=== PATIENT | male | born 1980 | race Caucasian/White ===

== ENCOUNTER 2017-06-08 06:32 | Inpatient (IN) | payer MEDICAID, OTHER ==
[2017-06-08] MEDS: ONDANSETRON 4 MG INJ IV (07:43)
[2017-06-08] MEDS: HYDROmorphONE 1 MG/ML SYG IV ×2 (07:43→10:22)
[2017-06-08] MEDS: NITROGLYCERIN (SL) 0.4 MG TAB SL (07:43)
[2017-06-08 07:45] LABS: ADD MAN DIFF? NO
[2017-06-08 07:47] LABS: WHITE BLOOD COUNT 11.1 10^3/ul (4.8-10.8)
[2017-06-08 07:47] LABS: ABNORMAL IP MESSAGE 1; BASOPHIL # 0.1 10^3/ul (0.0-0.1); BASOPHILS % 0.5 % (0.0-2.0); EOSINOPHILS # 0.3 10^3/ul (0.0-0.5); EOSINOPHILS % 2.5 % (0.0-7.0); LYMPHOCYTES # 0.6 10^3/ul (0.8-2.9); LYMPHOCYTES % 5.3 % (15.0-51.0); MEAN CORPUSCULAR HEMOGLOBIN 29.2 pg (29.0-33.0); MEAN CORPUSCULAR HGB CONC 32.4 g/dl (32.0-37.0); MEAN PLATELET VOLUME 11.2 fl (7.4-10.4); MONOCYTE # 0.7 10^3/ul (0.3-0.9); MONOCYTES % 5.9 % (0.0-11.0); NEUTROPHIL # 9.5 10^3/ul (1.6-7.5); NEUTROPHILS % 85.4 % (39.0-77.0); PLATELET COUNT 197 10^3/UL (140-415); POSITIVE DIFF @See below; RED BLOOD COUNT 4.11 10^6/ul (4.70-6.10); RED CELL DISTRIBUTION WIDTH 14.6 % (11.5-14.5)
[2017-06-08 08:05] LABS: ANION GAP 25 (8-16); BLOOD UREA NITROGEN 72 mg/dl (7-20); CALCIUM 8.9 mg/dl (8.4-10.2); CARBON DIOXIDE 26 mmol/L (21-31); CHLORIDE 93 mmol/L (97-110); GLUCOSE 99 mg/dl (70-220); SODIUM 139 mmol/L (135-144)
[2017-06-08 08:09] LABS: INR 0.99; PROTIME 13.2 Sec (11.9-14.9)
[2017-06-08 08:10] LABS: PARTIAL THROMBOPLASTIN TIME 31.5 Sec (25.0-35.0)
[2017-06-08 08:15] LABS: CREATININE 14.74 mg/dl (0.61-1.24)
[2017-06-08 08:26] LABS: TROPONIN-I 0.221 ng/ml (0.00-0.12)
[2017-06-08] MEDS: NITROGLYCERIN 50 MG/D5W (PMX) 250 ML IV ×2 (08:29→21:52)
[2017-06-08] MEDS: ASPIRIN 81 MG TAB PO (08:31)
[2017-06-08] MEDS ORDERED: DOCUSATE SODIUM 100 MG CAP PO (12:30)
[2017-06-08] MEDS ORDERED: morphine 2 MG INJ IV (12:30)
[2017-06-08] MEDS ORDERED: HYDROCODONE/APAP (5/325) TAB PO (12:30)
[2017-06-08] MEDS ORDERED: NACL 0.9% 3 ML SYG IV (12:30)
[2017-06-08] MEDS ORDERED: ONDANSETRON 4 MG INJ IV (12:30)
[2017-06-08] MEDS ORDERED: ACETAMINOPHEN 325 MG TAB PO (12:30)
[2017-06-08 12:50] LABS: ALANINE AMINOTRANSFERASE 18 IU/L (13-69); ALBUMIN 4.4 g/dl (3.3-4.9); ALKALINE PHOSPHATASE 103 IU/L (42-121); ASPARTATE AMINO TRANSFERASE 18 IU/L (15-46); TOTAL PROTEIN 7.2 g/dl (6.1-8.1)
[2017-06-08 15:00] LABS: CREATINE KINASE 168 IU/L (23-200)
[2017-06-08 15:11] LABS: CK INDEX 1.4
[2017-06-08 15:26] LABS: CK-MB 2.31 ng/ml (0.0-2.4); TROPONIN-I 0.149 ng/ml (0.00-0.12)
[2017-06-08 15:57] LABS: HEPATITIS B SURFACE ANTIGEN NEGATIVE (NEGATIVE)
[2017-06-08 16:15] LABS: HEPATITIS B SURFACE ANTIBODY POSITIVE (NEGATIVE)
[2017-06-08] MEDS: HEPARIN 5,000 UNIT/0.5 ML VIAL SC ×2 (17:19→21:57)
[2017-06-08] MEDS: CEFTRIAXONE 1 GM/50 ML (PMX) 50 ML IVPB (17:21)
[2017-06-08] MEDS: CINACALCET 30 MG TAB PO (17:22)
[2017-06-08] MEDS: BENAZEPRIL 20 MG TAB PO ×2 (17:23→20:58)
[2017-06-08] MEDS: SEVELAMER CARBONATE 0.8 GM PKT PO (19:01)
[2017-06-08] MEDS ORDERED: NITROGLYCERIN 50 MG/D5W (PMX) 250 ML (19:12)
[2017-06-08 19:32] LABS: CREATINE KINASE 137 IU/L (23-200)
[2017-06-08 19:45] LABS: CK INDEX 1.5
[2017-06-08 19:58] LABS: CK-MB 2.08 ng/ml (0.0-2.4); TROPONIN-I 0.139 ng/ml (0.00-0.12)
[2017-06-08] MEDS ORDERED: SODIUM CHLORIDE 0.9% 1L BAG IV (20:00)
[2017-06-08] MEDS: METOPROLOL 50 MG TAB PO (20:58)
[2017-06-08] MEDS: NIFEdipine (XL) 30 MG TAB PO (23:49)
[2017-06-09 01:14] LABS: CREATINE KINASE 188 IU/L (23-200)
[2017-06-09 01:26] LABS: CK INDEX 1.2
[2017-06-09 01:31] LABS: CK-MB 2.18 ng/ml (0.0-2.4); TROPONIN-I 0.166 ng/ml (0.00-0.12)
[2017-06-09] MEDS: PANTOPRAZOLE 40 MG INJ IV (05:09)
[2017-06-09] MEDS: HEPARIN 5,000 UNIT/0.5 ML VIAL SC ×3 (05:11→22:38)
[2017-06-09 06:08] LABS: ADD MAN DIFF? NO
[2017-06-09 06:36] LABS: ALANINE AMINOTRANSFERASE 22 IU/L (13-69); ALBUMIN 3.7 g/dl (3.3-4.9); ALBUMIN/GLOBULIN RATIO 1.48; ALKALINE PHOSPHATASE 73 IU/L (42-121); ANION GAP 20 (8-16); ASPARTATE AMINO TRANSFERASE 16 IU/L (15-46); BLOOD UREA NITROGEN 53 mg/dl (7-20); CARBON DIOXIDE 30 mmol/L (21-31); CHLORIDE 94 mmol/L (97-110); CHOL/HDL RATIO 3.8 RATIO; CHOLESTEROL 149 mg/dl (100-200); CREATININE 12.29 mg/dl (0.61-1.24); GLUCOSE 91 mg/dl (70-220); HDL CHOLESTEROL 39 mg/dl (28-63); LDL CHOLESTEROL,CALCULATED 92 mg/dl; POTASSIUM 4.9 mmol/L (3.5-5.1); SODIUM 139 mmol/L (135-144); TOTAL PROTEIN 6.2 g/dl (6.1-8.1); TRIGLYCERIDES 89 mg/dl (0-149)
[2017-06-09 06:51] LABS: WHITE BLOOD COUNT 9.1 10^3/ul (4.8-10.8)
[2017-06-09 06:51] LABS: BASOPHIL # 0.1 10^3/ul (0.0-0.1); BASOPHILS % 0.6 % (0.0-2.0); EOSINOPHILS # 0.3 10^3/ul (0.0-0.5); EOSINOPHILS % 3.1 % (0.0-7.0); HEMATOCRIT 31.3 % (42.0-52.0); LYMPHOCYTES # 0.9 10^3/ul (0.8-2.9); LYMPHOCYTES % 9.6 % (15.0-51.0); MEAN CORPUSCULAR HGB CONC 31.9 g/dl (32.0-37.0); MEAN CORPUSCULAR VOLUME 90.7 fl (82.0-101.0); MEAN PLATELET VOLUME 12.1 fl (7.4-10.4); MONOCYTE # 0.9 10^3/ul (0.3-0.9); MONOCYTES % 10.2 % (0.0-11.0); NEUTROPHIL # 6.9 10^3/ul (1.6-7.5); NEUTROPHILS % 76.2 % (39.0-77.0); PLATELET COUNT 179 10^3/UL (140-415); RED BLOOD COUNT 3.45 10^6/ul (4.70-6.10); RED CELL DISTRIBUTION WIDTH 14.8 % (11.5-14.5)
[2017-06-09 07:35] LABS: CALCIUM 8.1 mg/dl (8.4-10.2)
[2017-06-09] MEDS: METOPROLOL 50 MG TAB PO ×2 (09:00→20:54)
[2017-06-09] MEDS ORDERED: NIFEdipine (XL) 90 MG TAB PO (09:00)
[2017-06-09] MEDS: ISOSORBIDE DINITRATE 20 MG TAB PO ×3 (09:00→20:51)
[2017-06-09] MEDS: BENAZEPRIL 20 MG TAB PO ×2 (09:00→20:52)
[2017-06-09] MEDS: CINACALCET 30 MG TAB PO (09:05)
[2017-06-09] MEDS: SEVELAMER CARBONATE 0.8 GM PKT PO ×3 (09:05→18:14)
[2017-06-09] MEDS: NIFEdipine (XL) 60 MG TAB PO (14:44)
[2017-06-09] MEDS: CEFTRIAXONE 1 GM/50 ML (PMX) 50 ML IVPB (14:44)
[2017-06-09] MEDS ORDERED: NIFEdipine (XL) 30 MG TAB PO (21:00)
[2017-06-09] MEDS: NIFEdipine (XL) 30 MG TAB PO (22:35)
[2017-06-10] MEDS: PANTOPRAZOLE 40 MG INJ IV (05:52)
[2017-06-10] MEDS: HEPARIN 5,000 UNIT/0.5 ML VIAL SC ×3 (05:54→21:21)
[2017-06-10] MEDS: SEVELAMER CARBONATE 0.8 GM PKT PO ×3 (08:00→18:32)
[2017-06-10] MEDS: CINACALCET 30 MG TAB PO (09:16)
[2017-06-10] MEDS: ASPIRIN 81 MG TAB PO (09:16)
[2017-06-10] MEDS: NIFEdipine (XL) 60 MG TAB PO (09:16)
[2017-06-10] MEDS: BENAZEPRIL 20 MG TAB PO ×2 (09:17→21:12)
[2017-06-10] MEDS: ISOSORBIDE DINITRATE 20 MG TAB PO ×3 (09:17→21:11)
[2017-06-10] MEDS: METOPROLOL 50 MG TAB PO ×2 (09:17→21:11)
[2017-06-10] MEDS: REGADENOSON 0.4 MG/5 ML SYG (11:00)
[2017-06-10] MEDS: CEFTRIAXONE 1 GM/50 ML (PMX) 50 ML IVPB (15:32)
[2017-06-10] MEDS: NIFEdipine (XL) 30 MG TAB PO (22:15)
[2017-06-11] MEDS: PANTOPRAZOLE 40 MG INJ IV (05:49)
[2017-06-11] MEDS: HEPARIN 5,000 UNIT/0.5 ML VIAL SC ×2 (05:50→13:47)
[2017-06-11] MEDS: SEVELAMER CARBONATE 0.8 GM PKT PO ×3 (08:00→18:05)
[2017-06-11] MEDS: NIFEdipine (XL) 60 MG TAB PO (09:00)
[2017-06-11] MEDS: ISOSORBIDE DINITRATE 20 MG TAB PO ×2 (09:00→13:27)
[2017-06-11] MEDS: METOPROLOL 50 MG TAB PO ×2 (09:00→13:26)
[2017-06-11] MEDS: ASPIRIN 81 MG TAB PO (09:00)
[2017-06-11] MEDS: BENAZEPRIL 20 MG TAB PO (09:00)
[2017-06-11] MEDS: CINACALCET 30 MG TAB PO (09:00)
[2017-06-11] MEDS: CEFTRIAXONE 1 GM/50 ML (PMX) 50 ML IVPB (13:27)
== END 2017-06-11 18:18 | disposition home or self-care (01) | DRG 291 ==
LOC: E/R 06:32 → MS4 06-09 18:46 → ICU 09:28
PROC: 5A1D70Z Performance of Urinary Filtration, Intermittent, Less than 6 Hours Per Day (ICD-10-PCS; principal; 2017-06-08)
DX: I13.2 Hypertensive heart and chronic kidney disease with heart failure and with stage 5 chronic kidney disease, or end stage renal disease (principal); N18.6 End stage renal disease; J18.9 Pneumonia, unspecified organism; J81.1 Chronic pulmonary edema; I50.23 Acute on chronic systolic (congestive) heart failure; I16.1 Hypertensive emergency; I50.84 End stage heart failure; Z99.2 Dependence on renal dialysis; Z72.0 Tobacco use; Z91.11 Patient's noncompliance with dietary regimen
CPT/HCPCS: 36415; 71045; 76700; 78452; 80048; 80053; 80061; 80076; 82550; 82553; 84484; 85025; 85610; 85730; 86706; 87081; 87340; 87400; 90935; 93005; 93017; 93306; 96365; 96372; 96375; 96376; 99291-25

== ENCOUNTER 2017-11-22 12:25 | Inpatient (IN) | payer MEDICAID ==
[2017-11-22 15:16] LABS: WHITE BLOOD COUNT 8.5 10^3/ul (4.8-10.8)
[2017-11-22 15:16] LABS: ABNORMAL IP MESSAGE 1; HEMATOCRIT 35.3 % (42.0-52.0); HEMOGLOBIN 10.9 g/dl (14.0-18.0); MEAN CORPUSCULAR HEMOGLOBIN 27.9 pg (29.0-33.0); MEAN CORPUSCULAR HGB CONC 30.9 g/dl (32.0-37.0); MEAN CORPUSCULAR VOLUME 90.3 fl (82.0-101.0); MEAN PLATELET VOLUME 11.1 fl (7.4-10.4); PLATELET COUNT 180 10^3/UL (140-415); POSITIVE DIFF @See below; RED BLOOD COUNT 3.91 10^6/ul (4.70-6.10); RED CELL DISTRIBUTION WIDTH 18.4 % (11.5-14.5)
[2017-11-22 15:23] LABS: ADD MAN DIFF? YES
[2017-11-22] MEDS: ONDANSETRON 4 MG INJ IV ×3 (15:29→22:24)
[2017-11-22] MEDS: HYDROmorphONE 1 MG/ML SYG IV ×2 (15:30→22:01)
[2017-11-22 15:37] LABS: ALANINE AMINOTRANSFERASE 15 IU/L (13-69); ALBUMIN 4.7 g/dl (3.3-4.9); ALBUMIN/GLOBULIN RATIO 1.46; ALKALINE PHOSPHATASE 85 IU/L (42-121); ANION GAP 23 (8-16); ASPARTATE AMINO TRANSFERASE 32 IU/L (15-46); BILIRUBIN,INDIRECT 0.2 mg/dl (0-1.1); BILIRUBIN,TOTAL 0.2 mg/dl (0.2-1.3); BLOOD UREA NITROGEN 56 mg/dl (7-20); CALCIUM 10.2 mg/dl (8.4-10.2); CARBON DIOXIDE 21 mmol/L (21-31); CHLORIDE 101 mmol/L (97-110); CREATININE 12.72 mg/dl (0.61-1.24); GLUCOSE 108 mg/dl (70-220); LIPASE 1058 U/L (23-300); POTASSIUM 4.8 mmol/L (3.5-5.1); SODIUM 140 mmol/L (135-144); TOTAL PROTEIN 7.9 g/dl (6.1-8.1)
[2017-11-22 16:02] LABS: ANISOCYTOSIS 1+ (0-0); BURR CELLS 1+ (0-0); EOSINOPHILS % (M) 1 % (0-7); MICROCYTOSIS 1+ (0-0); MONOCYTES % (M) 1 % (0-11); MYELOCYTES % (M) 1 % (0-0); PLATELET ESTIMATE NORMAL; POIKILOCYTOSIS 1+ (0-0); SEGMENTED NEUTROPHILS (M) % 97 % (39-77)
[2017-11-22] MEDS: LABETALOL HCL 20MG INJ IV (16:30)
[2017-11-22] MEDS ORDERED: ACETAMINOPHEN 325 MG TAB PO (17:30)
[2017-11-22] MEDS: hydrALAzine 20 MG INJ IV ×2 (17:44→18:46)
[2017-11-22] MEDS: HYDROmorphONE 2 MG/ML SYG IV (19:39)
[2017-11-22] MEDS ORDERED: ONDANSETRON 4 MG INJ IV (20:30)
[2017-11-22] MEDS ORDERED: MAGNESIUM HYDROXIDE 30ML CUP PO (20:30)
[2017-11-22] MEDS ORDERED: NACL 0.9% 3 ML SYG IV (20:30)
[2017-11-22] MEDS: SOD CHLORIDE 0.45% 1,000 ML IV (21:53)
[2017-11-22] MEDS: BENAZEPRIL 20 MG TAB PO (21:54)
[2017-11-22] MEDS: METOPROLOL 50 MG TAB PO (21:54)
[2017-11-22] MEDS: NIFEdipine (XL) 90 MG TAB PO (21:54)
[2017-11-22] MEDS: METOCLOPRAMIDE 10 MG INJ IV (22:01)
[2017-11-22] MEDS: DIPHENHYDRAMINE 50 MG INJ IV (22:24)
[2017-11-22] MEDS: LORAZEPAM 2 MG INJ IV (22:24)
[2017-11-23] MEDS: PANTOPRAZOLE 40 MG INJ IV (05:40)
[2017-11-23 06:02] LABS: ADD MAN DIFF? NO
[2017-11-23 06:12] LABS: ABNORMAL IP MESSAGE 1; BASOPHILS % 0.2 % (0.0-2.0); HEMATOCRIT 33.8 % (42.0-52.0); HEMOGLOBIN 10.5 g/dl (14.0-18.0); LYMPHOCYTES # 0.3 10^3/ul (0.8-2.9); LYMPHOCYTES % 2.7 % (15.0-51.0); MEAN CORPUSCULAR HEMOGLOBIN 27.3 pg (29.0-33.0); MEAN CORPUSCULAR HGB CONC 31.1 g/dl (32.0-37.0); MEAN PLATELET VOLUME 11.8 fl (7.4-10.4); MONOCYTE # 1.1 10^3/ul (0.3-0.9); MONOCYTES % 9.2 % (0.0-11.0); NEUTROPHIL # 10.7 10^3/ul (1.6-7.5); NEUTROPHILS % 87.3 % (39.0-77.0); PLATELET COUNT 176 10^3/UL (140-415); POSITIVE DIFF @See below; RED BLOOD COUNT 3.84 10^6/ul (4.70-6.10); RED CELL DISTRIBUTION WIDTH 18.4 % (11.5-14.5)
[2017-11-23 06:12] LABS: WHITE BLOOD COUNT 12.2 10^3/ul (4.8-10.8)
[2017-11-23 06:38] LABS: ALANINE AMINOTRANSFERASE 20 IU/L (13-69); ALBUMIN 4.6 g/dl (3.3-4.9); ALBUMIN/GLOBULIN RATIO 1.64; ALKALINE PHOSPHATASE 73 IU/L (42-121); ANION GAP 23 (8-16); ASPARTATE AMINO TRANSFERASE 22 IU/L (15-46); BILIRUBIN,INDIRECT 0.2 mg/dl (0-1.1); BILIRUBIN,TOTAL 0.2 mg/dl (0.2-1.3); BLOOD UREA NITROGEN 67 mg/dl (7-20); CARBON DIOXIDE 21 mmol/L (21-31); CHLORIDE 102 mmol/L (97-110); GLUCOSE 115 mg/dl (70-220); MAGNESIUM 2.7 mg/dl (1.7-2.5); PHOSPHORUS 9.3 mg/dl (2.5-4.9); POTASSIUM 5.1 mmol/L (3.5-5.1); SODIUM 141 mmol/L (135-144); TOTAL PROTEIN 7.4 g/dl (6.1-8.1)
[2017-11-23 06:47] LABS: CREATININE 13.59 mg/dl (0.61-1.24)
[2017-11-23 07:10] LABS: HEMOGLOBIN A1C 4.8 % (0-5.9)
[2017-11-23] MEDS: SEVELAMER CARBONATE 800 MG TABLET PO ×4 (07:43→18:00)
[2017-11-23] MEDS: SOD CHLORIDE 0.45% 1,000 ML IV (08:07)
[2017-11-23] MEDS: BENAZEPRIL 20 MG TAB PO ×2 (08:50→23:38)
[2017-11-23] MEDS: METOPROLOL 50 MG TAB PO ×2 (08:53→23:37)
[2017-11-23] MEDS: CINACALCET 30 MG TAB PO (08:54)
[2017-11-23] MEDS: ACETAMINOPHEN 325 MG TAB PO ×2 (09:16→20:31)
[2017-11-23] MEDS: NIFEdipine (XL) 90 MG TAB PO (09:16)
[2017-11-23] MEDS ORDERED: SODIUM CHLORIDE 0.9% 1L BAG IV (11:00)
[2017-11-23] MEDS: CEFTRIAXONE 1 GM/50 ML (PMX) 50 ML IVPB (13:08)
[2017-11-23 14:17] LABS: HEPATITIS B SURFACE ANTIGEN NEGATIVE (NEGATIVE)
[2017-11-23] MEDS: HEPARIN 1000 UNITS/ML 10 ML INJ CATHETER (22:45)
[2017-11-23] MEDS: IBUPROFEN 600 MG TAB PO (23:37)
[2017-11-24 00:37] LABS: LACTIC ACID 0.9 mmol/L (0.5-2.0)
[2017-11-24] MEDS: SOD CHLORIDE 0.45% 1,000 ML IV ×3 (00:50→20:56)
[2017-11-24 05:42] LABS: ADD MAN DIFF? NO
[2017-11-24 06:04] LABS: WHITE BLOOD COUNT 8.9 10^3/ul (4.8-10.8)
[2017-11-24 06:04] LABS: ABNORMAL IP MESSAGE 1; BASOPHILS % 0.1 % (0.0-2.0); HEMATOCRIT 33.2 % (42.0-52.0); HEMOGLOBIN 10.5 g/dl (14.0-18.0); LYMPHOCYTES # 0.4 10^3/ul (0.8-2.9); LYMPHOCYTES % 4.1 % (15.0-51.0); MEAN CORPUSCULAR HEMOGLOBIN 28.2 pg (29.0-33.0); MEAN CORPUSCULAR HGB CONC 31.6 g/dl (32.0-37.0); MEAN PLATELET VOLUME 12.4 fl (7.4-10.4); MONOCYTE # 0.5 10^3/ul (0.3-0.9); MONOCYTES % 5.1 % (0.0-11.0); NEUTROPHIL # 8.1 10^3/ul (1.6-7.5); NEUTROPHILS % 90.3 % (39.0-77.0); POSITIVE DIFF @See below; RED BLOOD COUNT 3.73 10^6/ul (4.70-6.10); RED CELL DISTRIBUTION WIDTH 18.1 % (11.5-14.5)
[2017-11-24 06:06] LABS: PLATELET COUNT 136 10^3/UL (140-415)
[2017-11-24] MEDS: PANTOPRAZOLE 40 MG INJ IV (06:08)
[2017-11-24 06:18] LABS: PHOSPHORUS 8.3 mg/dl (2.5-4.9)
[2017-11-24 06:18] LABS: MAGNESIUM 2.2 mg/dl (1.7-2.5)
[2017-11-24 06:39] LABS: ALANINE AMINOTRANSFERASE 14 IU/L (13-69); ALBUMIN 3.4 g/dl (3.3-4.9); ALBUMIN/GLOBULIN RATIO 1.21; ALKALINE PHOSPHATASE 47 IU/L (42-121); ANION GAP 18 (8-16); ASPARTATE AMINO TRANSFERASE 22 IU/L (15-46); BILIRUBIN,INDIRECT 0.3 mg/dl (0-1.1); BILIRUBIN,TOTAL 0.3 mg/dl (0.2-1.3); BLOOD UREA NITROGEN 39 mg/dl (7-20); CALCIUM 8.9 mg/dl (8.4-10.2); CARBON DIOXIDE 25 mmol/L (21-31); CHLORIDE 98 mmol/L (97-110); CREATININE 9.23 mg/dl (0.61-1.24); GLUCOSE 88 mg/dl (70-220); LIPASE 38 U/L (23-300); POTASSIUM 4.3 mmol/L (3.5-5.1); SODIUM 137 mmol/L (135-144); TOTAL PROTEIN 6.2 g/dl (6.1-8.1)
[2017-11-24] MEDS: SEVELAMER CARBONATE 800 MG TABLET PO ×3 (08:00→17:48)
[2017-11-24] MEDS: METOPROLOL 50 MG TAB PO ×2 (08:26→20:55)
[2017-11-24] MEDS: CEFTRIAXONE 1 GM/50 ML (PMX) 50 ML IVPB (08:26)
[2017-11-24] MEDS: CINACALCET 30 MG TAB PO (08:27)
[2017-11-24] MEDS: BENAZEPRIL 20 MG TAB PO ×2 (08:27→20:54)
[2017-11-24] MEDS: NIFEdipine (XL) 90 MG TAB PO (08:27)
[2017-11-24 10:32] LABS: RETICULOCYTE COUNT # 0.055 X10^6 (0.020-0.110); RETICULOCYTE COUNT % 1.5 % (0.5-1.5)
[2017-11-24 10:32] LABS: RETICULOCYTE RBC 3.72
[2017-11-24 10:47] LABS: TRIGLYCERIDES 133 mg/dl (0-149)
[2017-11-24 14:32] LABS: FOLATE 9.4 ng/ml (2.8-20.0)
[2017-11-24] MEDS ORDERED: ALBUMIN HUMAN 25% 100 ML IV (15:00)
[2017-11-24] MEDS ORDERED: SODIUM CHLORIDE 0.9% 1L BAG IV (15:00)
[2017-11-24 19:38] LABS: OCCULT BLOOD STOOL NEGATIVE (NEGATIVE)
[2017-11-24] MEDS: morphine 2 MG INJ IV (21:01)
[2017-11-24] MEDS ORDERED: morphine LIQ (10 MG/5 ML) CUP PO (23:00)
[2017-11-25] MEDS: PANTOPRAZOLE 40 MG INJ IV (05:48)
[2017-11-25 06:12] LABS: ADD MAN DIFF? NO
[2017-11-25 06:18] LABS: ABNORMAL IP MESSAGE 1; BASOPHILS % 0.2 % (0.0-2.0); EOSINOPHILS % 0.4 % (0.0-7.0); HEMATOCRIT 32.5 % (42.0-52.0); HEMOGLOBIN 10.1 g/dl (14.0-18.0); LYMPHOCYTES # 0.6 10^3/ul (0.8-2.9); LYMPHOCYTES % 11.6 % (15.0-51.0); MEAN CORPUSCULAR HEMOGLOBIN 27.4 pg (29.0-33.0); MEAN CORPUSCULAR HGB CONC 31.1 g/dl (32.0-37.0); MEAN CORPUSCULAR VOLUME 88.3 fl (82.0-101.0); MEAN PLATELET VOLUME 11.2 fl (7.4-10.4); MONOCYTE # 0.4 10^3/ul (0.3-0.9); MONOCYTES % 8.5 % (0.0-11.0); NEUTROPHIL # 3.7 10^3/ul (1.6-7.5); NEUTROPHILS % 78.9 % (39.0-77.0); PLATELET COUNT 140 10^3/UL (140-415); POSITIVE DIFF @See below; RED BLOOD COUNT 3.68 10^6/ul (4.70-6.10); RED CELL DISTRIBUTION WIDTH 17.4 % (11.5-14.5)
[2017-11-25 06:18] LABS: WHITE BLOOD COUNT 4.7 10^3/ul (4.8-10.8)
[2017-11-25] MEDS: SEVELAMER CARBONATE 800 MG TABLET PO ×3 (07:51→17:26)
[2017-11-25] MEDS: HEPARIN 1000 UNITS/ML 10 ML INJ CATHETER (11:30)
[2017-11-25] MEDS: CINACALCET 30 MG TAB PO (11:55)
[2017-11-25] MEDS: BENAZEPRIL 20 MG TAB PO ×2 (11:55→21:10)
[2017-11-25] MEDS: NIFEdipine (XL) 90 MG TAB PO (11:56)
[2017-11-25] MEDS: METOPROLOL 50 MG TAB PO ×2 (12:00→21:11)
[2017-11-25] MEDS: CEFTRIAXONE 1 GM/50 ML (PMX) 50 ML IVPB (12:06)
[2017-11-25] MEDS: SOD CHLORIDE 0.45% 1,000 ML IV (14:25)
[2017-11-26] MEDS: PANTOPRAZOLE (EC) 40 MG TAB PO (05:41)
[2017-11-26] MEDS: SEVELAMER CARBONATE 800 MG TABLET PO ×3 (08:35→17:26)
[2017-11-26] MEDS: NIFEdipine (XL) 90 MG TAB PO (08:36)
[2017-11-26] MEDS: BENAZEPRIL 20 MG TAB PO ×2 (08:36→21:03)
[2017-11-26] MEDS: METOPROLOL 50 MG TAB PO ×2 (08:36→21:03)
[2017-11-26] MEDS: CINACALCET 30 MG TAB PO (08:37)
[2017-11-27] MEDS: PANTOPRAZOLE (EC) 40 MG TAB PO (06:08)
[2017-11-27 06:47] LABS: ANION GAP 15 (8-16); BLOOD UREA NITROGEN 47 mg/dl (7-20); CARBON DIOXIDE 26 mmol/L (21-31); CHLORIDE 96 mmol/L (97-110); CREATININE 11.64 mg/dl (0.61-1.24); GLUCOSE 89 mg/dl (70-220); POTASSIUM 4.1 mmol/L (3.5-5.1); SODIUM 133 mmol/L (135-144)
[2017-11-27 06:58] LABS: CALCIUM 7.8 mg/dl (8.4-10.2)
[2017-11-27] MEDS: SEVELAMER CARBONATE 800 MG TABLET PO ×2 (08:15→11:50)
[2017-11-27] MEDS: CINACALCET 30 MG TAB PO (08:15)
[2017-11-27] MEDS: METOPROLOL 50 MG TAB PO (08:20)
[2017-11-27] MEDS: NIFEdipine (XL) 90 MG TAB PO (08:21)
[2017-11-27] MEDS: BENAZEPRIL 20 MG TAB PO (08:21)
== END 2017-11-27 14:09 | disposition home or self-care (01) | DRG 391 ==
LOC: 6WM 17:21 → E/R 12:25
PROC: 5A1D70Z Performance of Urinary Filtration, Intermittent, Less than 6 Hours Per Day (ICD-10-PCS; principal; 2017-11-25)
DX: A08.4 Viral intestinal infection, unspecified (principal); N18.6 End stage renal disease; I16.1 Hypertensive emergency; I12.0 Hypertensive chronic kidney disease with stage 5 chronic kidney disease or end stage renal disease; K56.7 Ileus, unspecified; K86.0 Alcohol-induced chronic pancreatitis; J45.909 Unspecified asthma, uncomplicated; I16.0 Hypertensive urgency; E83.39 Other disorders of phosphorus metabolism; F10.11 Alcohol abuse, in remission; I51.7 Cardiomegaly; R16.2 Hepatomegaly with splenomegaly, not elsewhere classified; D63.8 Anemia in other chronic diseases classified elsewhere; Z79.82 Long term (current) use of aspirin; Z99.2 Dependence on renal dialysis
CPT/HCPCS: 71045; 74176; 74181; 76705; 80048; 80053; 82270; 82607; 82728; 82746; 83036; 83605; 83690; 83735; 84100; 84478; 85025; 85045; 87040; 87045; 87075; 87177; 87340; 90935; 96374; 96375; 99285-25

== ENCOUNTER 2018-02-10 08:42 | Emergency (ER) | payer MEDICAID ==
[2018-02-10 11:09] LABS: ADD MAN DIFF? NO
[2018-02-10 11:20] LABS: BASOPHILS % 0.5 % (0.0-2.0); EOSINOPHILS # 0.4 10^3/ul (0.0-0.5); EOSINOPHILS % 7.2 % (0.0-7.0); HEMATOCRIT 25.3 % (42.0-52.0); HEMOGLOBIN 7.8 g/dl (14.0-18.0); LYMPHOCYTES # 0.6 10^3/ul (0.8-2.9); LYMPHOCYTES % 10.6 % (15.0-51.0); MEAN CORPUSCULAR HEMOGLOBIN 27.2 pg (29.0-33.0); MEAN CORPUSCULAR HGB CONC 30.8 g/dl (32.0-37.0); MEAN CORPUSCULAR VOLUME 88.2 fl (82.0-101.0); MEAN PLATELET VOLUME 11.4 fl (7.4-10.4); MONOCYTE # 0.3 10^3/ul (0.3-0.9); MONOCYTES % 5.5 % (0.0-11.0); NEUTROPHIL # 4.5 10^3/ul (1.6-7.5); PLATELET COUNT 205 10^3/UL (140-415); RED BLOOD COUNT 2.87 10^6/ul (4.70-6.10); RED CELL DISTRIBUTION WIDTH 18.2 % (11.5-14.5)
[2018-02-10 11:38] LABS: ALANINE AMINOTRANSFERASE 21 IU/L (13-69); ALBUMIN 3.9 g/dl (3.3-4.9); ALKALINE PHOSPHATASE 68 IU/L (42-121); ANION GAP 13 (5-13); ASPARTATE AMINO TRANSFERASE 18 IU/L (15-46); BILIRUBIN,INDIRECT 0.1 mg/dl (0-1.1); BILIRUBIN,TOTAL 0.1 mg/dl (0.2-1.3); BLOOD UREA NITROGEN 48 mg/dl (7-20); CALCIUM 9.7 mg/dl (8.4-10.2); CARBON DIOXIDE 30 mmol/L (21-31); CHLORIDE 96 mmol/L (97-110); CREATININE 11.12 mg/dl (0.61-1.24); GLUCOSE 91 mg/dl (70-220); POTASSIUM 4.6 mmol/L (3.5-5.1); SODIUM 139 mmol/L (135-144); TOTAL PROTEIN 6.9 g/dl (6.1-8.1)
[2018-02-10 11:40] LABS: INR 1.07; PT RATIO 1.1
== END 2018-02-10 12:51 | disposition home or self-care (01) ==
LOC: FTE 08:42
DX: H92.21 Otorrhagia, right ear (principal); Z79.82 Long term (current) use of aspirin
CPT/HCPCS: 36415; 80053; 85025; 85610; 85730; 99283

== ENCOUNTER 2018-03-26 02:02 | Inpatient (IN) | payer MEDICAID ==
[2018-03-26 02:52] LABS: ADD MAN DIFF? NO
[2018-03-26 02:53] LABS: WHITE BLOOD COUNT 10.5 10^3/ul (4.8-10.8)
[2018-03-26 02:53] LABS: BASOPHIL # 0.1 10^3/ul (0.0-0.1); BASOPHILS % 0.5 % (0.0-2.0); EOSINOPHILS # 0.7 10^3/ul (0.0-0.5); EOSINOPHILS % 6.9 % (0.0-7.0); HEMATOCRIT 29.5 % (42.0-52.0); HEMOGLOBIN 9.1 g/dl (14.0-18.0); LYMPHOCYTES # 0.9 10^3/ul (0.8-2.9); LYMPHOCYTES % 8.2 % (15.0-51.0); MEAN CORPUSCULAR HEMOGLOBIN 27.7 pg (29.0-33.0); MEAN CORPUSCULAR HGB CONC 30.8 g/dl (32.0-37.0); MEAN CORPUSCULAR VOLUME 89.7 fl (82.0-101.0); MEAN PLATELET VOLUME 10.1 fl (7.4-10.4); MONOCYTE # 0.5 10^3/ul (0.3-0.9); MONOCYTES % 4.9 % (0.0-11.0); NEUTROPHIL # 8.3 10^3/ul (1.6-7.5); NEUTROPHILS % 79.2 % (39.0-77.0); PLATELET COUNT 310 10^3/UL (140-415); RED BLOOD COUNT 3.29 10^6/ul (4.70-6.10); RED CELL DISTRIBUTION WIDTH 18.3 % (11.5-14.5)
[2018-03-26] MEDS: NICARDipine HCL 30 MG CAPSULE PO ×2 (03:07→05:02)
[2018-03-26] MEDS: hydrALAzine 20 MG INJ IV ×3 (03:08→18:35)
[2018-03-26] MEDS: DIPHENHYDRAMINE 50 MG INJ IV ×2 (03:08→11:38)
[2018-03-26 03:15] LABS: ALANINE AMINOTRANSFERASE 21 IU/L (13-69); ALBUMIN 4.2 g/dl (3.3-4.9); ALBUMIN/GLOBULIN RATIO 1.35; ALKALINE PHOSPHATASE 104 IU/L (42-121); ANION GAP 15 (5-13); ASPARTATE AMINO TRANSFERASE 28 IU/L (15-46); BILIRUBIN,INDIRECT 0.1 mg/dl (0-1.1); BILIRUBIN,TOTAL 0.1 mg/dl (0.2-1.3); BLOOD UREA NITROGEN 60 mg/dl (7-20); CALCIUM 10.4 mg/dl (8.4-10.2); CARBON DIOXIDE 27 mmol/L (21-31); CHLORIDE 99 mmol/L (97-110); CREATININE 11.06 mg/dl (0.61-1.24); Estimated GFR 5 mL/min (>60); GLUCOSE 93 mg/dl (70-220); POTASSIUM 5.7 mmol/L (3.5-5.1); SODIUM 141 mmol/L (135-144); TOTAL PROTEIN 7.3 g/dl (6.1-8.1)
[2018-03-26 03:26] LABS: TROPONIN-I 0.013 ng/ml (0.000-0.120)
[2018-03-26] MEDS: ONDANSETRON 4 MG INJ IV (04:30)
[2018-03-26] MEDS: morphine 4 MG/ML VIAL IV (04:30)
[2018-03-26] MEDS: NA POLYST SULFON 15 GM/60 ML BTL PO (04:30)
[2018-03-26] MEDS ORDERED: ONDANSETRON 4 MG INJ IV (05:00)
[2018-03-26] MEDS ORDERED: ACETAMINOPHEN 325 MG TAB PO (05:00)
[2018-03-26] MEDS: LABETALOL HCL 20MG INJ IV (06:04)
[2018-03-26] MEDS: METOPROLOL 50 MG TAB PO ×3 (09:30→20:06)
[2018-03-26] MEDS: BENAZEPRIL 20 MG TAB PO ×3 (09:30→20:06)
[2018-03-26] MEDS: NIFEdipine (XL) 90 MG TAB PO ×2 (09:47→14:52)
[2018-03-26] MEDS: CINACALCET 30 MG TAB PO (09:55)
[2018-03-26] MEDS: ASPIRIN 81 MG TAB PO (09:55)
[2018-03-26] MEDS: SEVELAMER CARBONATE 800 MG TABLET PO ×2 (11:38→16:16)
[2018-03-26] MEDS: ISOSORBIDE DINITRATE 20 MG TAB PO ×3 (12:40→21:00)
[2018-03-26] MEDS: HYDROCODONE/APAP (5/325) TAB GTB ×2 (14:51→20:05)
[2018-03-27] MEDS: morphine 2 MG INJ IV (00:19)
[2018-03-27] MEDS: PANTOPRAZOLE (EC) 40 MG TAB PO (05:45)
[2018-03-27 06:38] LABS: ALANINE AMINOTRANSFERASE 20 IU/L (13-69); ALBUMIN 3.7 g/dl (3.3-4.9); ALBUMIN/GLOBULIN RATIO 1.32; ALKALINE PHOSPHATASE 75 IU/L (42-121); ANION GAP 13 (5-13); ASPARTATE AMINO TRANSFERASE 16 IU/L (15-46); BILIRUBIN,INDIRECT 0.2 mg/dl (0-1.1); BILIRUBIN,TOTAL 0.2 mg/dl (0.2-1.3); BLOOD UREA NITROGEN 45 mg/dl (7-20); CALCIUM 8.7 mg/dl (8.4-10.2); CARBON DIOXIDE 30 mmol/L (21-31); CHLORIDE 94 mmol/L (97-110); CREATININE 9.42 mg/dl (0.61-1.24); Estimated GFR 6 mL/min (>60); GLUCOSE 88 mg/dl (70-220); POTASSIUM 5.9 mmol/L (3.5-5.1); SODIUM 137 mmol/L (135-144); TOTAL PROTEIN 6.5 g/dl (6.1-8.1)
[2018-03-27] MEDS: SEVELAMER CARBONATE 800 MG TABLET PO ×3 (08:40→17:16)
[2018-03-27] MEDS: CINACALCET 30 MG TAB PO (08:41)
[2018-03-27] MEDS: ASPIRIN 81 MG TAB PO (08:41)
[2018-03-27] MEDS: ISOSORBIDE DINITRATE 20 MG TAB PO ×3 (08:42→21:02)
[2018-03-27] MEDS: METOPROLOL 50 MG TAB PO ×2 (08:42→21:02)
[2018-03-27] MEDS: NIFEdipine (XL) 90 MG TAB PO (08:42)
[2018-03-27] MEDS: BENAZEPRIL 20 MG TAB PO ×2 (08:42→21:03)
[2018-03-27] MEDS: HYDROCODONE/APAP (5/325) TAB GTB ×2 (17:16→23:20)
[2018-03-27] MEDS: DIPHENHYDRAMINE 50 MG INJ IV (23:20)
[2018-03-28] MEDS: hydrALAzine 20 MG INJ IV (03:30)
[2018-03-28] MEDS: PANTOPRAZOLE (EC) 40 MG TAB PO (05:04)
[2018-03-28 05:21] LABS: ADD MAN DIFF? NO
[2018-03-28 05:24] LABS: BASOPHILS % 0.6 % (0.0-2.0); EOSINOPHILS # 0.6 10^3/ul (0.0-0.5); EOSINOPHILS % 8.6 % (0.0-7.0); HEMATOCRIT 26.4 % (42.0-52.0); HEMOGLOBIN 8.2 g/dl (14.0-18.0); LYMPHOCYTES # 0.8 10^3/ul (0.8-2.9); MEAN CORPUSCULAR HEMOGLOBIN 27.5 pg (29.0-33.0); MEAN CORPUSCULAR HGB CONC 31.1 g/dl (32.0-37.0); MEAN CORPUSCULAR VOLUME 88.6 fl (82.0-101.0); MEAN PLATELET VOLUME 10.6 fl (7.4-10.4); MONOCYTE # 0.4 10^3/ul (0.3-0.9); MONOCYTES % 6.1 % (0.0-11.0); NEUTROPHIL # 5.1 10^3/ul (1.6-7.5); NEUTROPHILS % 72.6 % (39.0-77.0); PLATELET COUNT 257 10^3/UL (140-415); RED BLOOD COUNT 2.98 10^6/ul (4.70-6.10); RED CELL DISTRIBUTION WIDTH 17.2 % (11.5-14.5)
[2018-03-28 05:39] LABS: ANION GAP 8 (5-13); BLOOD UREA NITROGEN 32 mg/dl (7-20); CALCIUM 8.7 mg/dl (8.4-10.2); CARBON DIOXIDE 32 mmol/L (21-31); CHLORIDE 98 mmol/L (97-110); CREATININE 7.97 mg/dl (0.61-1.24); Estimated GFR 8 mL/min (>60); GLUCOSE 93 mg/dl (70-220); SODIUM 138 mmol/L (135-144)
[2018-03-28 05:59] LABS: PHOSPHORUS 5.2 mg/dl (2.5-4.9)
[2018-03-28 05:59] LABS: MAGNESIUM 2.4 mg/dl (1.7-2.5)
[2018-03-28] MEDS: SEVELAMER CARBONATE 800 MG TABLET PO ×3 (08:16→17:12)
[2018-03-28] MEDS: CINACALCET 30 MG TAB PO (08:17)
[2018-03-28] MEDS: ASPIRIN 81 MG TAB PO (08:17)
[2018-03-28] MEDS: NIFEdipine (XL) 90 MG TAB PO (08:18)
[2018-03-28] MEDS: BENAZEPRIL 20 MG TAB PO ×2 (08:18→21:06)
[2018-03-28] MEDS: ISOSORBIDE DINITRATE 20 MG TAB PO ×3 (08:19→21:06)
[2018-03-28] MEDS: METOPROLOL 50 MG TAB PO ×2 (08:19→21:05)
[2018-03-28] MEDS: DIPHENHYDRAMINE 50 MG INJ IV (21:05)
[2018-03-29] MEDS: HYDROCODONE/APAP (5/325) TAB GTB (01:18)
[2018-03-29] MEDS: PANTOPRAZOLE (EC) 40 MG TAB PO (05:51)
[2018-03-29 06:14] LABS: ANION GAP 13 (5-13); BLOOD UREA NITROGEN 56 mg/dl (7-20); CALCIUM 8.9 mg/dl (8.4-10.2); CARBON DIOXIDE 28 mmol/L (21-31); CHLORIDE 96 mmol/L (97-110); CREATININE 10.59 mg/dl (0.61-1.24); Estimated GFR 5 mL/min (>60); GLUCOSE 93 mg/dl (70-220); POTASSIUM 5.5 mmol/L (3.5-5.1); SODIUM 137 mmol/L (135-144)
[2018-03-29] MEDS: SEVELAMER CARBONATE 800 MG TABLET PO ×2 (09:00→13:00)
[2018-03-29] MEDS: ISOSORBIDE DINITRATE 20 MG TAB PO ×2 (11:12→13:02)
[2018-03-29] MEDS: ASPIRIN 81 MG TAB PO (13:00)
[2018-03-29] MEDS: NIFEdipine (XL) 90 MG TAB PO (13:01)
[2018-03-29] MEDS: BENAZEPRIL 20 MG TAB PO (13:01)
[2018-03-29] MEDS: CINACALCET 30 MG TAB PO (13:01)
[2018-03-29] MEDS: METOPROLOL 50 MG TAB PO (13:02)
[2018-03-29] MEDS ORDERED: EPOETIN 4000 UNITS/1 ML INJ (ESRD) SC (17:00)
== END 2018-03-29 17:23 | disposition home or self-care (01) | DRG 189 ==
LOC: E/R 02:02 → 6WM 04:42
PROC: 5A1D70Z Performance of Urinary Filtration, Intermittent, Less than 6 Hours Per Day (ICD-10-PCS; principal; 2018-03-26)
PROC: 5A1D70Z Performance of Urinary Filtration, Intermittent, Less than 6 Hours Per Day (ICD-10-PCS; 2018-03-27)
PROC: 5A1D70Z Performance of Urinary Filtration, Intermittent, Less than 6 Hours Per Day (ICD-10-PCS; 2018-03-28)
PROC: 5A1D70Z Performance of Urinary Filtration, Intermittent, Less than 6 Hours Per Day (ICD-10-PCS; 2018-03-29)
DX: J81.0 Acute pulmonary edema (principal); N18.6 End stage renal disease; I13.2 Hypertensive heart and chronic kidney disease with heart failure and with stage 5 chronic kidney disease, or end stage renal disease; N25.81 Secondary hyperparathyroidism of renal origin; Z99.2 Dependence on renal dialysis; Z91.15 Patient's noncompliance with renal dialysis; I50.9 Heart failure, unspecified; D64.9 Anemia, unspecified; Z91.19 Patient's noncompliance with other medical treatment and regimen; E87.70 Fluid overload, unspecified; E87.5 Hyperkalemia
CPT/HCPCS: 36415; 71045; 80048; 80053; 83735; 84100; 84484; 85025; 90935; 93005; 96374; 96375; 99285-25

== ENCOUNTER 2018-04-18 23:10 | Inpatient (IN) | payer MEDICAID ==
[2018-04-19 00:43] LABS: ADD MAN DIFF? NO
[2018-04-19 00:58] LABS: BASOPHIL # 0.1 10^3/ul (0.0-0.1); BASOPHILS % 0.5 % (0.0-2.0); EOSINOPHILS # 0.4 10^3/ul (0.0-0.5); EOSINOPHILS % 3.5 % (0.0-7.0); HEMATOCRIT 34.6 % (42.0-52.0); LYMPHOCYTES # 0.9 10^3/ul (0.8-2.9); LYMPHOCYTES % 9.3 % (15.0-51.0); MEAN CORPUSCULAR HEMOGLOBIN 28.4 pg (29.0-33.0); MEAN CORPUSCULAR HGB CONC 31.8 g/dl (32.0-37.0); MEAN CORPUSCULAR VOLUME 89.2 fl (82.0-101.0); MEAN PLATELET VOLUME 11.8 fl (7.4-10.4); MONOCYTE # 0.4 10^3/ul (0.3-0.9); MONOCYTES % 4.2 % (0.0-11.0); NEUTROPHIL # 8.2 10^3/ul (1.6-7.5); PLATELET COUNT 161 10^3/UL (140-415); RED BLOOD COUNT 3.88 10^6/ul (4.70-6.10)
[2018-04-19] MEDS: morphine 4 MG/ML VIAL IV (01:06)
[2018-04-19] MEDS: ONDANSETRON 4 MG INJ IV (01:07)
[2018-04-19] MEDS: hydrALAzine 20 MG INJ IV ×3 (01:21→09:34)
[2018-04-19 01:30] LABS: ALANINE AMINOTRANSFERASE 33 IU/L (13-69); ALBUMIN 4.3 g/dl (3.3-4.9); ALBUMIN/GLOBULIN RATIO 1.79; ALKALINE PHOSPHATASE 71 IU/L (42-121); ANION GAP 17 (5-13); ASPARTATE AMINO TRANSFERASE 32 IU/L (15-46); BLOOD UREA NITROGEN 84 mg/dl (7-20); CALCIUM 10.2 mg/dl (8.4-10.2); CARBON DIOXIDE 28 mmol/L (21-31); CHLORIDE 94 mmol/L (97-110); GLUCOSE 111 mg/dl (70-220); SODIUM 139 mmol/L (135-144); TOTAL PROTEIN 6.7 g/dl (6.1-8.1)
[2018-04-19] MEDS ORDERED: SOD CHLORIDE 0.9% 1,000 ML IV (01:30)
[2018-04-19 01:36] LABS: Estimated GFR 4 mL/min (>60)
[2018-04-19 01:42] LABS: TROPONIN-I 0.032 ng/ml (0.000-0.120)
[2018-04-19 01:55] LABS: CREATININE 13.05 mg/dl (0.61-1.24)
[2018-04-19 01:59] LABS: POTASSIUM 6.2 mmol/L (3.5-5.1)
[2018-04-19 02:00] LABS: B-TYPE NATRIURETIC PEPTIDE > 175000 PG/ML (0-125)
[2018-04-19] MEDS: NIFEdipine (XL) 90 MG TAB PO (04:46)
[2018-04-19] MEDS: CLONIDINE 0.3 MG/24 HR PATCH TRANSDERM (04:46)
[2018-04-19 06:32] LABS: CREATINE KINASE 47 IU/L (23-200)
[2018-04-19 06:35] LABS: CK INDEX 3.1; CK-MB 1.46 ng/ml (0.0-2.4)
[2018-04-19] MEDS ORDERED: NACL 0.9% 3 ML SYG IV (10:30)
[2018-04-19] MEDS ORDERED: morphine 2 MG INJ IV (10:30)
[2018-04-19 11:06] LABS: LIPASE 33 U/L (23-300)
[2018-04-19 11:06] LABS: CREATINE KINASE 44 IU/L (23-200)
[2018-04-19 11:22] LABS: CK INDEX 3.7; CK-MB 1.61 ng/ml (0.0-2.4); TROPONIN-I 0.026 ng/ml (0.000-0.120)
[2018-04-19] MEDS: SEVELAMER CARBONATE 800 MG TABLET PO ×2 (12:00→18:00)
[2018-04-19] MEDS: ACETAMINOPHEN 325 MG TAB PO (13:02)
[2018-04-19] MEDS: ISOSORBIDE DINITRATE 20 MG TAB PO ×2 (13:03→20:06)
[2018-04-19] MEDS: METOPROLOL 50 MG TAB PO ×2 (13:05→20:06)
[2018-04-19] MEDS: HEPARIN 5,000 UNIT/1 ML VIAL SC ×2 (13:10→21:57)
[2018-04-19 14:27] LABS: HEPATITIS B SURFACE ANTIGEN NEGATIVE (NEGATIVE)
[2018-04-19 16:55] LABS: CREATINE KINASE 39 IU/L (23-200)
[2018-04-19 17:07] LABS: CK INDEX 3.7; CK-MB 1.45 ng/ml (0.0-2.4); TROPONIN-I 0.023 ng/ml (0.000-0.120)
[2018-04-19] MEDS: HYDROmorphONE 0.5 MG/0.5 ML SYG IV (20:05)
[2018-04-20] MEDS: hydrALAzine 20 MG INJ IV ×2 (00:13→04:03)
[2018-04-20] MEDS: morphine 4 MG/ML VIAL IV (01:43)
[2018-04-20] MEDS: ONDANSETRON 4 MG INJ IV (01:48)
[2018-04-20] MEDS: DIPHENHYDRAMINE 50 MG INJ IV ×2 (04:51→18:41)
[2018-04-20 05:21] LABS: ADD MAN DIFF? NO
[2018-04-20 05:22] LABS: WHITE BLOOD COUNT 9.4 10^3/ul (4.8-10.8)
[2018-04-20 05:22] LABS: BASOPHILS % 0.4 % (0.0-2.0); EOSINOPHILS # 0.1 10^3/ul (0.0-0.5); EOSINOPHILS % 0.9 % (0.0-7.0); HEMATOCRIT 32.5 % (42.0-52.0); HEMOGLOBIN 10.2 g/dl (14.0-18.0); LYMPHOCYTES # 0.6 10^3/ul (0.8-2.9); LYMPHOCYTES % 6.6 % (15.0-51.0); MEAN CORPUSCULAR HEMOGLOBIN 28.2 pg (29.0-33.0); MEAN CORPUSCULAR HGB CONC 31.4 g/dl (32.0-37.0); MEAN CORPUSCULAR VOLUME 89.8 fl (82.0-101.0); MEAN PLATELET VOLUME 11.8 fl (7.4-10.4); MONOCYTE # 0.5 10^3/ul (0.3-0.9); MONOCYTES % 5.1 % (0.0-11.0); NEUTROPHIL # 8.2 10^3/ul (1.6-7.5); NEUTROPHILS % 86.7 % (39.0-77.0); PLATELET COUNT 196 10^3/UL (140-415); RED BLOOD COUNT 3.62 10^6/ul (4.70-6.10); RED CELL DISTRIBUTION WIDTH 20.6 % (11.5-14.5)
[2018-04-20] MEDS: PANTOPRAZOLE 40 MG INJ IV (06:11)
[2018-04-20 06:29] LABS: ANION GAP 15 (5-13); BLOOD UREA NITROGEN 53 mg/dl (7-20); CALCIUM 9.4 mg/dl (8.4-10.2); CARBON DIOXIDE 28 mmol/L (21-31); CHLORIDE 94 mmol/L (97-110); CREATININE 10.04 mg/dl (0.61-1.24); Estimated GFR 6 mL/min (>60); GLUCOSE 101 mg/dl (70-220); MAGNESIUM 2.4 mg/dl (1.7-2.5); PHOSPHORUS 8.1 mg/dl (2.5-4.9); SODIUM 137 mmol/L (135-144)
[2018-04-20] MEDS: HEPARIN 5,000 UNIT/1 ML VIAL SC (06:53)
[2018-04-20 07:43] LABS: ALANINE AMINOTRANSFERASE 33 IU/L (13-69); ALBUMIN 3.9 g/dl (3.3-4.9); ALKALINE PHOSPHATASE 67 IU/L (42-121); ASPARTATE AMINO TRANSFERASE 33 IU/L (15-46); BILIRUBIN,INDIRECT 0.1 mg/dl (0-1.1); BILIRUBIN,TOTAL 0.1 mg/dl (0.2-1.3); TOTAL PROTEIN 6.4 g/dl (6.1-8.1)
[2018-04-20] MEDS: POLYETHYLENE GLYCOL 17 GM PACKET PO (08:27)
[2018-04-20] MEDS: SEVELAMER CARBONATE 800 MG TABLET PO ×3 (08:28→18:38)
[2018-04-20] MEDS: NIFEdipine (XL) 90 MG TAB PO ×2 (08:29→21:00)
[2018-04-20] MEDS: ISOSORBIDE DINITRATE 20 MG TAB PO ×3 (08:30→21:00)
[2018-04-20] MEDS: METOPROLOL 50 MG TAB PO ×2 (08:30→21:00)
[2018-04-20] MEDS ORDERED: ASPIRIN (EC) 81 MG TAB PO (09:00)
[2018-04-21] MEDS: DIPHENHYDRAMINE 50 MG INJ IV ×2 (00:56→13:32)
[2018-04-21] MEDS: ISOSORBIDE DINITRATE 20 MG TAB PO ×4 (00:57→20:10)
[2018-04-21] MEDS: NIFEdipine (XL) 90 MG TAB PO ×3 (00:58→20:10)
[2018-04-21] MEDS: METOPROLOL 50 MG TAB PO ×3 (00:59→20:09)
[2018-04-21 05:18] LABS: ADD MAN DIFF? NO
[2018-04-21 05:33] LABS: BASOPHIL # 0.1 10^3/ul (0.0-0.1); BASOPHILS % 0.9 % (0.0-2.0); EOSINOPHILS # 0.6 10^3/ul (0.0-0.5); EOSINOPHILS % 9.7 % (0.0-7.0); HEMATOCRIT 32.1 % (42.0-52.0); HEMOGLOBIN 10.2 g/dl (14.0-18.0); LYMPHOCYTES % 16.4 % (15.0-51.0); MEAN CORPUSCULAR HGB CONC 31.8 g/dl (32.0-37.0); MEAN CORPUSCULAR VOLUME 91.2 fl (82.0-101.0); MEAN PLATELET VOLUME 10.9 fl (7.4-10.4); MONOCYTE # 0.6 10^3/ul (0.3-0.9); MONOCYTES % 9.9 % (0.0-11.0); NEUTROPHIL # 3.7 10^3/ul (1.6-7.5); NEUTROPHILS % 62.8 % (39.0-77.0); PLATELET COUNT 206 10^3/UL (140-415); RED BLOOD COUNT 3.52 10^6/ul (4.70-6.10)
[2018-04-21 05:33] LABS: WHITE BLOOD COUNT 5.9 10^3/ul (4.8-10.8)
[2018-04-21] MEDS: PANTOPRAZOLE 40 MG INJ IV (05:35)
[2018-04-21 05:50] LABS: INR 1.09; PROTIME 14.3 Sec (11.9-14.9); PT RATIO 1.1
[2018-04-21 05:51] LABS: PARTIAL THROMBOPLASTIN TIME 29.5 Sec (23.0-35.0)
[2018-04-21 06:07] LABS: ALANINE AMINOTRANSFERASE 27 IU/L (13-69); ALBUMIN 3.4 g/dl (3.3-4.9); ALKALINE PHOSPHATASE 60 IU/L (42-121); ASPARTATE AMINO TRANSFERASE 15 IU/L (15-46); TOTAL PROTEIN 5.7 g/dl (6.1-8.1)
[2018-04-21 06:16] LABS: MAGNESIUM 2.4 mg/dl (1.7-2.5)
[2018-04-21 06:21] LABS: ALANINE AMINOTRANSFERASE 28 IU/L (13-69); ALBUMIN 3.3 g/dl (3.3-4.9); ALBUMIN/GLOBULIN RATIO 1.37; ALKALINE PHOSPHATASE 63 IU/L (42-121); ANION GAP 11 (5-13); ASPARTATE AMINO TRANSFERASE 15 IU/L (15-46); BLOOD UREA NITROGEN 30 mg/dl (7-20); CALCIUM 9.2 mg/dl (8.4-10.2); CARBON DIOXIDE 34 mmol/L (21-31); CHLORIDE 95 mmol/L (97-110); CREATININE 8.04 mg/dl (0.61-1.24); Estimated GFR 8 mL/min (>60); GLUCOSE 99 mg/dl (70-220); POTASSIUM 4.2 mmol/L (3.5-5.1); SODIUM 140 mmol/L (135-144); TOTAL PROTEIN 5.7 g/dl (6.1-8.1)
[2018-04-21] MEDS: SEVELAMER CARBONATE 800 MG TABLET PO ×3 (08:00→18:19)
[2018-04-21] MEDS: POLYETHYLENE GLYCOL 17 GM PACKET PO (08:59)
[2018-04-21] MEDS: PROPOFOL 40 ML (14:08)
[2018-04-21] MEDS: SOD FERRIC GLUC COMPLX 125 MG in SOD CHLORIDE 0.9% 100 ML IVPB (18:19)
[2018-04-21] MEDS: morphine 4 MG/ML VIAL IV (23:03)
[2018-04-22] MEDS: DIPHENHYDRAMINE 50 MG INJ IV ×3 (00:30→19:03)
[2018-04-22] MEDS: PANTOPRAZOLE 40 MG INJ IV (05:12)
[2018-04-22 06:09] LABS: ADD MAN DIFF? NO
[2018-04-22 06:26] LABS: WHITE BLOOD COUNT 6.2 10^3/ul (4.8-10.8)
[2018-04-22 06:26] LABS: BASOPHIL # 0.1 10^3/ul (0.0-0.1); BASOPHILS % 0.8 % (0.0-2.0); EOSINOPHILS # 0.7 10^3/ul (0.0-0.5); EOSINOPHILS % 11.4 % (0.0-7.0); HEMOGLOBIN 10.3 g/dl (14.0-18.0); LYMPHOCYTES # 0.9 10^3/ul (0.8-2.9); LYMPHOCYTES % 15.3 % (15.0-51.0); MEAN CORPUSCULAR HEMOGLOBIN 28.7 pg (29.0-33.0); MEAN CORPUSCULAR HGB CONC 30.3 g/dl (32.0-37.0); MEAN CORPUSCULAR VOLUME 94.7 fl (82.0-101.0); MEAN PLATELET VOLUME 11.1 fl (7.4-10.4); MONOCYTE # 0.6 10^3/ul (0.3-0.9); MONOCYTES % 10.4 % (0.0-11.0); NEUTROPHIL # 3.8 10^3/ul (1.6-7.5); NEUTROPHILS % 61.8 % (39.0-77.0); PLATELET COUNT 206 10^3/UL (140-415); RED BLOOD COUNT 3.59 10^6/ul (4.70-6.10); RED CELL DISTRIBUTION WIDTH 19.9 % (11.5-14.5)
[2018-04-22 06:42] LABS: ANION GAP 9 (5-13); BLOOD UREA NITROGEN 46 mg/dl (7-20); CALCIUM 9.2 mg/dl (8.4-10.2); CARBON DIOXIDE 29 mmol/L (21-31); CHLORIDE 99 mmol/L (97-110); CREATININE 10.44 mg/dl (0.61-1.24); Estimated GFR 6 mL/min (>60); GLUCOSE 97 mg/dl (70-220); POTASSIUM 5.2 mmol/L (3.5-5.1); SODIUM 137 mmol/L (135-144)
[2018-04-22] MEDS: POLYETHYLENE GLYCOL 17 GM PACKET PO (08:41)
[2018-04-22] MEDS: NIFEdipine (XL) 90 MG TAB PO (08:42)
[2018-04-22] MEDS: METOPROLOL 50 MG TAB PO (08:42)
[2018-04-22] MEDS: SEVELAMER CARBONATE 800 MG TABLET PO ×3 (08:42→17:28)
[2018-04-22] MEDS: ISOSORBIDE DINITRATE 20 MG TAB PO ×2 (08:43→15:19)
[2018-04-22] MEDS: SOD FERRIC GLUC COMPLX 125 MG in SOD CHLORIDE 0.9% 100 ML IVPB (15:20)
== END 2018-04-22 19:00 | disposition home or self-care (01) | DRG 640 ==
LOC: E/R 23:10 → 6WM 04-19 01:17
PROC: 0DJ08ZZ Inspection of Upper Intestinal Tract, Via Natural or Artificial Opening Endoscopic (ICD-10-PCS; principal; 2018-04-21 13:40)
PROC: 5A1D70Z Performance of Urinary Filtration, Intermittent, Less than 6 Hours Per Day (ICD-10-PCS; 2018-04-21 13:40)
DX: E87.70 Fluid overload, unspecified (principal); N18.6 End stage renal disease; I12.0 Hypertensive chronic kidney disease with stage 5 chronic kidney disease or end stage renal disease; I16.1 Hypertensive emergency; N25.81 Secondary hyperparathyroidism of renal origin; Z99.2 Dependence on renal dialysis; E87.5 Hyperkalemia; K44.9 Diaphragmatic hernia without obstruction or gangrene; K29.00 Acute gastritis without bleeding; R07.9 Chest pain, unspecified; R11.2 Nausea with vomiting, unspecified; R51 Headache; K81.9 Cholecystitis, unspecified
CPT/HCPCS: 70450; 71045; 76700; 78226; 80048; 80053; 80076; 82550; 82553; 83690; 83735; 83880; 84100; 84484; 85025; 85610; 85730; 87340; 88305; 88312; 90686; 90935; 93005

== ENCOUNTER 2018-05-17 20:35 | Emergency (ER) | payer MEDICAID, OTHER ==
[2018-05-18] MEDS: ACETAMINOPHEN 325 MG TAB PO ×2 (00:33→05:06)
[2018-05-18 00:34] LABS: ADD MAN DIFF? NO
[2018-05-18 00:50] LABS: INR 1.23; PROTIME 15.6 Sec (11.9-14.9); PT RATIO 1.2
[2018-05-18 00:51] LABS: PARTIAL THROMBOPLASTIN TIME 36.5 Sec (23.0-35.0)
[2018-05-18 00:53] LABS: ALANINE AMINOTRANSFERASE 10 IU/L (13-69); ALBUMIN 4.1 g/dl (3.3-4.9); ALBUMIN/GLOBULIN RATIO 1.24; ALKALINE PHOSPHATASE 81 IU/L (42-121); ANION GAP 16 (5-13); ASPARTATE AMINO TRANSFERASE 15 IU/L (15-46); BILIRUBIN,INDIRECT 0.1 mg/dl (0-1.1); BILIRUBIN,TOTAL 0.1 mg/dl (0.2-1.3); BLOOD UREA NITROGEN 37 mg/dl (7-20); CALCIUM 10.2 mg/dl (8.4-10.2); CARBON DIOXIDE 33 mmol/L (21-31); CHLORIDE 93 mmol/L (97-110); CREATININE 8.85 mg/dl (0.61-1.24); Estimated GFR 7 mL/min (>60); GLUCOSE 100 mg/dl (70-220); POTASSIUM 4.2 mmol/L (3.5-5.1); SODIUM 142 mmol/L (135-144); TOTAL PROTEIN 7.4 g/dl (6.1-8.1)
[2018-05-18 01:04] LABS: TROPONIN-I 0.056 ng/ml (0.000-0.120)
[2018-05-18 02:15] LABS: WHITE BLOOD COUNT 10.1 10^3/ul (4.8-10.8)
[2018-05-18 02:15] LABS: BASOPHIL # 0.1 10^3/ul (0.0-0.1); BASOPHILS % 0.6 % (0.0-2.0); EOSINOPHILS # 0.3 10^3/ul (0.0-0.5); EOSINOPHILS % 2.7 % (0.0-7.0); HEMATOCRIT 35.9 % (42.0-52.0); HEMOGLOBIN 11.3 g/dl (14.0-18.0); LYMPHOCYTES # 0.9 10^3/ul (0.8-2.9); LYMPHOCYTES % 8.8 % (15.0-51.0); MEAN CORPUSCULAR HEMOGLOBIN 28.5 pg (29.0-33.0); MEAN CORPUSCULAR HGB CONC 31.5 g/dl (32.0-37.0); MEAN CORPUSCULAR VOLUME 90.4 fl (82.0-101.0); MEAN PLATELET VOLUME 11.7 fl (7.4-10.4); MONOCYTE # 0.9 10^3/ul (0.3-0.9); MONOCYTES % 8.5 % (0.0-11.0); PLATELET COUNT 208 10^3/UL (140-415); RED BLOOD COUNT 3.97 10^6/ul (4.70-6.10); RED CELL DISTRIBUTION WIDTH 18.8 % (11.5-14.5)
[2018-05-18] MEDS: DIPHENHYDRAMINE 50 MG INJ IV (02:41)
[2018-05-18 04:46] LABS: LACTIC ACID 0.7 mmol/L (0.5-2.0)
== END 2018-05-18 05:17 | disposition home or self-care (01) ==
LOC: E/R 20:35
DX: M79.10 Myalgia, unspecified site (principal); I10 Essential (primary) hypertension; Z79.82 Long term (current) use of aspirin
CPT/HCPCS: 36415; 71045; 80053; 83605; 84484; 85025; 85610; 85730; 87040; 93005; 96374; 99285-25

== ENCOUNTER 2018-06-19 07:03 | Inpatient (IN) | payer MEDICAID ==
[2018-06-19 07:39] LABS: ADD MAN DIFF? NO
[2018-06-19 07:41] LABS: BASOPHIL # 0.1 10^3/ul (0.0-0.1); BASOPHILS % 0.5 % (0.0-2.0); EOSINOPHILS # 0.2 10^3/ul (0.0-0.5); EOSINOPHILS % 2.1 % (0.0-7.0); HEMATOCRIT 27.7 % (42.0-52.0); HEMOGLOBIN 8.7 g/dl (14.0-18.0); LYMPHOCYTES # 0.7 10^3/ul (0.8-2.9); LYMPHOCYTES % 6.4 % (15.0-51.0); MEAN CORPUSCULAR HEMOGLOBIN 28.4 pg (29.0-33.0); MEAN CORPUSCULAR HGB CONC 31.4 g/dl (32.0-37.0); MEAN CORPUSCULAR VOLUME 90.5 fl (82.0-101.0); MEAN PLATELET VOLUME 11.7 fl (7.4-10.4); MONOCYTE # 0.3 10^3/ul (0.3-0.9); MONOCYTES % 2.9 % (0.0-11.0); NEUTROPHIL # 9.1 10^3/ul (1.6-7.5); NEUTROPHILS % 87.6 % (39.0-77.0); PLATELET COUNT 153 10^3/UL (140-415); RED BLOOD COUNT 3.06 10^6/ul (4.70-6.10); RED CELL DISTRIBUTION WIDTH 18.9 % (11.5-14.5)
[2018-06-19 07:41] LABS: WHITE BLOOD COUNT 10.3 10^3/ul (4.8-10.8)
[2018-06-19 07:57] LABS: ALANINE AMINOTRANSFERASE 29 IU/L (13-69); ALBUMIN 3.9 g/dl (3.3-4.9); ALBUMIN/GLOBULIN RATIO 1.34; ALKALINE PHOSPHATASE 85 IU/L (42-121); ANION GAP 17 (5-13); ASPARTATE AMINO TRANSFERASE 37 IU/L (15-46); BLOOD UREA NITROGEN 69 mg/dl (7-20); CALCIUM 9.7 mg/dl (8.4-10.2); CARBON DIOXIDE 25 mmol/L (21-31); CHLORIDE 96 mmol/L (97-110); Estimated GFR 5 mL/min (>60); GLUCOSE 138 mg/dl (70-220); LIPASE 80 U/L (23-300); SODIUM 138 mmol/L (135-144); TOTAL PROTEIN 6.8 g/dl (6.1-8.1)
[2018-06-19] MEDS: ONDANSETRON 4 MG INJ IV ×2 (08:08→12:12)
[2018-06-19] MEDS: morphine 4 MG/ML VIAL IV (08:08)
[2018-06-19 08:09] LABS: TROPONIN-I 0.032 ng/ml (0.000-0.120)
[2018-06-19 08:16] LABS: POTASSIUM 6.4 mmol/L (3.5-5.1)
[2018-06-19] MEDS ORDERED: ALBUTEROL 0.5% (NEB) 2.5 MG/0.5 ML AMP INH (08:18)
[2018-06-19] MEDS: NA POLYST SULFON 15 GM/60 ML BTL PO (08:18)
[2018-06-19] MEDS ORDERED: ACETAMINOPHEN 325 MG TAB PO (08:30)
[2018-06-19] MEDS: NA BICARBONATE 8.4% 50 ML SYG IV (09:43)
[2018-06-19] MEDS: SODIUM POLYSTYRENE 15 GM KIT (POWDER + SORBITOL) PO (09:46)
[2018-06-19] MEDS: hydrALAzine 20 MG INJ IV ×3 (09:59→22:14)
[2018-06-19] MEDS ORDERED: ONDANSETRON 4 MG INJ IV (14:00)
[2018-06-19] MEDS ORDERED: DOCUSATE SODIUM 100 MG CAP PO (14:00)
[2018-06-19] MEDS ORDERED: NACL 0.9% 3 ML SYG IV (14:00)
[2018-06-19] MEDS: HEPARIN 5,000 UNIT/1 ML VIAL SC ×2 (14:00→21:30)
[2018-06-19] MEDS ORDERED: METOCLOPRAMIDE 10 MG INJ IV (14:00)
[2018-06-19] MEDS: METOCLOPRAMIDE 10 MG INJ IV ×2 (16:09→23:28)
[2018-06-19] MEDS: morphine 2 MG INJ IV ×2 (16:10→19:33)
[2018-06-19 18:25] LABS: HEPATITIS B SURFACE ANTIGEN NEGATIVE (NEGATIVE)
[2018-06-19] MEDS: SEVELAMER CARBONATE 800 MG TABLET PO (18:36)
[2018-06-19] MEDS: METOPROLOL 50 MG TAB PO (20:13)
[2018-06-19] MEDS: BENAZEPRIL 20 MG TAB PO (21:25)
[2018-06-19] MEDS: ACETAMINOPHEN 325 MG TAB PO (22:39)
[2018-06-20] MEDS: hydrALAzine 20 MG INJ IV ×3 (03:32→22:11)
[2018-06-20 05:28] LABS: ADD MAN DIFF? NO
[2018-06-20] MEDS: METOCLOPRAMIDE 10 MG INJ IV ×4 (05:33→23:40)
[2018-06-20] MEDS: PANTOPRAZOLE 40 MG INJ IV (05:33)
[2018-06-20 05:34] LABS: WHITE BLOOD COUNT 8.4 10^3/ul (4.8-10.8)
[2018-06-20 05:34] LABS: BASOPHIL # 0.1 10^3/ul (0.0-0.1); BASOPHILS % 0.6 % (0.0-2.0); EOSINOPHILS # 0.4 10^3/ul (0.0-0.5); EOSINOPHILS % 5.1 % (0.0-7.0); HEMOGLOBIN 8.5 g/dl (14.0-18.0); LYMPHOCYTES # 0.9 10^3/ul (0.8-2.9); LYMPHOCYTES % 11.1 % (15.0-51.0); MEAN CORPUSCULAR HEMOGLOBIN 28.4 pg (29.0-33.0); MEAN CORPUSCULAR HGB CONC 31.5 g/dl (32.0-37.0); MEAN CORPUSCULAR VOLUME 90.3 fl (82.0-101.0); MEAN PLATELET VOLUME 10.8 fl (7.4-10.4); MONOCYTE # 0.5 10^3/ul (0.3-0.9); MONOCYTES % 6.3 % (0.0-11.0); NEUTROPHIL # 6.4 10^3/ul (1.6-7.5); NEUTROPHILS % 76.7 % (39.0-77.0); PLATELET COUNT 152 10^3/UL (140-415); RED BLOOD COUNT 2.99 10^6/ul (4.70-6.10); RED CELL DISTRIBUTION WIDTH 18.7 % (11.5-14.5)
[2018-06-20] MEDS: HEPARIN 5,000 UNIT/1 ML VIAL SC ×3 (05:39→22:15)
[2018-06-20] MEDS: morphine 2 MG INJ IV (05:48)
[2018-06-20] MEDS: ACETAMINOPHEN 325 MG TAB PO ×3 (05:48→17:51)
[2018-06-20 06:04] LABS: ANION GAP 13 (5-13); BLOOD UREA NITROGEN 39 mg/dl (7-20); CALCIUM 9.3 mg/dl (8.4-10.2); CARBON DIOXIDE 32 mmol/L (21-31); CHLORIDE 92 mmol/L (97-110); CREATININE 8.23 mg/dl (0.61-1.24); Estimated GFR 7 mL/min (>60); GLUCOSE 90 mg/dl (70-220); MAGNESIUM 2.3 mg/dl (1.7-2.5); PHOSPHORUS 6.2 mg/dl (2.5-4.9); POTASSIUM 4.7 mmol/L (3.5-5.1); SODIUM 137 mmol/L (135-144)
[2018-06-20] MEDS: NIFEdipine (XL) 90 MG TAB PO (08:38)
[2018-06-20] MEDS: BENAZEPRIL 20 MG TAB PO ×2 (08:39→20:32)
[2018-06-20] MEDS: SEVELAMER CARBONATE 800 MG TABLET PO ×3 (08:39→17:51)
[2018-06-20] MEDS: CINACALCET 30 MG TAB PO (08:39)
[2018-06-20] MEDS: METOPROLOL 50 MG TAB PO (08:39)
[2018-06-20] MEDS: INFLUENZA VIRUS VACCINE 0.5 ML (DISPENSING) IM* (11:48)
[2018-06-20] MEDS: METOPROLOL 25 MG TAB PO (20:33)
[2018-06-20] MEDS: LORAZEPAM 0.5 MG TAB PO (22:05)
[2018-06-21] MEDS: morphine 2 MG INJ IV ×3 (02:36→21:45)
[2018-06-21] MEDS: hydrALAzine 20 MG INJ IV ×4 (03:45→23:27)
[2018-06-21] MEDS: ACETAMINOPHEN 325 MG TAB PO ×2 (05:06→17:06)
[2018-06-21] MEDS: METOCLOPRAMIDE 10 MG INJ IV ×4 (06:10→23:26)
[2018-06-21] MEDS: PANTOPRAZOLE 40 MG INJ IV (06:10)
[2018-06-21] MEDS: HEPARIN 5,000 UNIT/1 ML VIAL SC ×3 (06:27→22:02)
[2018-06-21] MEDS: SEVELAMER CARBONATE 800 MG TABLET PO ×3 (07:39→17:05)
[2018-06-21] MEDS: BENAZEPRIL 20 MG TAB PO ×2 (11:53→20:09)
[2018-06-21] MEDS: NIFEdipine (XL) 90 MG TAB PO (17:05)
[2018-06-21] MEDS: METOPROLOL 25 MG TAB PO ×2 (17:06→20:09)
[2018-06-21] MEDS: CINACALCET 30 MG TAB PO (17:06)
[2018-06-21] MEDS: ZOLPIDEM 5 MG TAB PO (21:45)
[2018-06-22] MEDS: morphine 2 MG INJ IV (03:27)
[2018-06-22] MEDS: PANTOPRAZOLE 40 MG INJ IV (05:50)
[2018-06-22] MEDS: METOCLOPRAMIDE 10 MG INJ IV ×4 (05:50→23:54)
[2018-06-22] MEDS: HEPARIN 5,000 UNIT/1 ML VIAL SC ×3 (06:17→22:17)
[2018-06-22 07:00] LABS: ANION GAP 14 (5-13); BLOOD UREA NITROGEN 27 mg/dl (7-20); CALCIUM 9.7 mg/dl (8.4-10.2); CARBON DIOXIDE 30 mmol/L (21-31); CHLORIDE 95 mmol/L (97-110); CREATININE 7.68 mg/dl (0.61-1.24); Estimated GFR 8 mL/min (>60); GLUCOSE 91 mg/dl (70-220); POTASSIUM 4.5 mmol/L (3.5-5.1); SODIUM 139 mmol/L (135-144)
[2018-06-22] MEDS: METOPROLOL 25 MG TAB PO ×2 (08:00→22:11)
[2018-06-22] MEDS: NIFEdipine (XL) 90 MG TAB PO (08:00)
[2018-06-22] MEDS: BENAZEPRIL 20 MG TAB PO ×2 (08:01→22:10)
[2018-06-22] MEDS: CINACALCET 30 MG TAB PO (08:01)
[2018-06-22] MEDS: SEVELAMER CARBONATE 800 MG TABLET PO ×3 (08:01→17:18)
[2018-06-22] MEDS: hydrALAzine 20 MG INJ IV ×2 (11:59→23:47)
[2018-06-22] MEDS: ZOLPIDEM 5 MG TAB PO (22:10)
[2018-06-23] MEDS: METOCLOPRAMIDE 10 MG INJ IV ×2 (05:14→13:29)
[2018-06-23] MEDS: hydrALAzine 20 MG INJ IV ×2 (05:14→14:55)
[2018-06-23] MEDS: PANTOPRAZOLE 40 MG INJ IV (05:14)
[2018-06-23] MEDS: HEPARIN 5,000 UNIT/1 ML VIAL SC (05:21)
[2018-06-23] MEDS: morphine 2 MG INJ IV (05:24)
[2018-06-23 06:06] LABS: MAGNESIUM 2.6 mg/dl (1.7-2.5)
[2018-06-23 06:06] LABS: PHOSPHORUS 6.6 mg/dl (2.5-4.9)
[2018-06-23 06:07] LABS: ANION GAP 13 (5-13); BLOOD UREA NITROGEN 40 mg/dl (7-20); CALCIUM 9.7 mg/dl (8.4-10.2); CARBON DIOXIDE 28 mmol/L (21-31); CHLORIDE 96 mmol/L (97-110); CREATININE 10.32 mg/dl (0.61-1.24); Estimated GFR 6 mL/min (>60); GLUCOSE 92 mg/dl (70-220); POTASSIUM 4.9 mmol/L (3.5-5.1); SODIUM 137 mmol/L (135-144)
[2018-06-23] MEDS: METOPROLOL 25 MG TAB PO (07:54)
[2018-06-23] MEDS: SEVELAMER CARBONATE 800 MG TABLET PO ×2 (09:31→13:29)
[2018-06-23] MEDS: CINACALCET 30 MG TAB PO (09:32)
[2018-06-23] MEDS: LORAZEPAM 0.5 MG TAB PO (11:50)
[2018-06-23] MEDS: BENAZEPRIL 20 MG TAB PO (13:33)
[2018-06-23] MEDS: NIFEdipine (XL) 90 MG TAB PO (13:34)
== END 2018-06-23 16:05 | disposition home or self-care (01) | DRG 391 ==
LOC: 6WM 06-21 17:48 → E/R 07:03 → 6WM 08:20
PROC: 5A1D70Z Performance of Urinary Filtration, Intermittent, Less than 6 Hours Per Day (ICD-10-PCS; 2018-06-19)
PROC: 5A1D70Z Performance of Urinary Filtration, Intermittent, Less than 6 Hours Per Day (ICD-10-PCS; 2018-06-20)
PROC: 5A1D70Z Performance of Urinary Filtration, Intermittent, Less than 6 Hours Per Day (ICD-10-PCS; 2018-06-21)
PROC: 5A1D70Z Performance of Urinary Filtration, Intermittent, Less than 6 Hours Per Day (ICD-10-PCS; principal; 2018-06-22)
DX: K52.9 Noninfective gastroenteritis and colitis, unspecified (principal); N18.6 End stage renal disease; I13.2 Hypertensive heart and chronic kidney disease with heart failure and with stage 5 chronic kidney disease, or end stage renal disease; N25.81 Secondary hyperparathyroidism of renal origin; I50.9 Heart failure, unspecified; E87.5 Hyperkalemia; K31.84 Gastroparesis; R11.2 Nausea with vomiting, unspecified; D63.1 Anemia in chronic kidney disease; I16.0 Hypertensive urgency; Z99.2 Dependence on renal dialysis; Z91.14 Patient's other noncompliance with medication regimen; Z91.15 Patient's noncompliance with renal dialysis; Z79.82 Long term (current) use of aspirin
CPT/HCPCS: 36415; 70450; 71045; 76705; 80048; 80053; 83690; 83735; 84100; 84484; 85025; 87081; 87340; 90686; 90935; 93308; 96374; 96375; 99291-25

== ENCOUNTER 2018-07-24 18:58 | Emergency (ER) | payer SELFPAY, MEDICAID | END 2018-07-24 21:00 | disposition left against medical advice (07) | LOC: E/R 18:58 | DX: Z53.21 Procedure and treatment not carried out due to patient leaving prior to being seen by health care provider (principal) ==

== ENCOUNTER 2018-07-26 06:07 | Inpatient (IN) | payer MEDICAID ==
[2018-07-26 06:45] LABS: ADD MAN DIFF? NO
[2018-07-26 06:47] LABS: WHITE BLOOD COUNT 9.8 10^3/ul (4.8-10.8)
[2018-07-26 06:47] LABS: BASOPHILS % 0.4 % (0.0-2.0); EOSINOPHILS # 0.5 10^3/ul (0.0-0.5); EOSINOPHILS % 5.1 % (0.0-7.0); HEMATOCRIT 30.5 % (42.0-52.0); HEMOGLOBIN 9.7 g/dl (14.0-18.0); LYMPHOCYTES # 0.8 10^3/ul (0.8-2.9); MEAN CORPUSCULAR HEMOGLOBIN 29.8 pg (29.0-33.0); MEAN CORPUSCULAR HGB CONC 31.8 g/dl (32.0-37.0); MEAN CORPUSCULAR VOLUME 93.8 fl (82.0-101.0); MEAN PLATELET VOLUME 10.7 fl (7.4-10.4); MONOCYTE # 0.4 10^3/ul (0.3-0.9); MONOCYTES % 4.5 % (0.0-11.0); NEUTROPHILS % 81.6 % (39.0-77.0); PLATELET COUNT 190 10^3/UL (140-415); RED BLOOD COUNT 3.25 10^6/ul (4.70-6.10); RED CELL DISTRIBUTION WIDTH 17.9 % (11.5-14.5)
[2018-07-26 07:07] LABS: ALANINE AMINOTRANSFERASE 9 IU/L (13-69); ALBUMIN 4.5 g/dl (3.3-4.9); ALKALINE PHOSPHATASE 96 IU/L (42-121); ANION GAP 11 (5-13); ASPARTATE AMINO TRANSFERASE 23 IU/L (15-46); BILIRUBIN,INDIRECT 0.4 mg/dl (0-1.1); BILIRUBIN,TOTAL 0.4 mg/dl (0.2-1.3); BLOOD UREA NITROGEN 31 mg/dl (7-20); CALCIUM 10.4 mg/dl (8.4-10.2); CARBON DIOXIDE 31 mmol/L (21-31); CHLORIDE 99 mmol/L (97-110); CREATININE 7.34 mg/dl (0.61-1.24); Estimated GFR 8 mL/min (>60); GLUCOSE 96 mg/dl (70-220); LIPASE 32 U/L (23-300); POTASSIUM 4.4 mmol/L (3.5-5.1); SODIUM 141 mmol/L (135-144); TOTAL PROTEIN 7.7 g/dl (6.1-8.1)
[2018-07-26 07:18] LABS: TROPONIN-I 0.028 ng/ml (0.000-0.120)
[2018-07-26] MEDS: morphine 2 MG INJ IV ×4 (09:22→22:10)
[2018-07-26] MEDS ORDERED: NACL 0.9% 3 ML SYG IV (11:00)
[2018-07-26] MEDS: METOCLOPRAMIDE 5 MG TAB PO ×2 (11:30→16:48)
[2018-07-26] MEDS: SEVELAMER 800 MG TAB PO ×2 (12:00→16:47)
[2018-07-26] MEDS: DEXTROSE 5%-0.45% NACL 1,000 ML IV (12:29)
[2018-07-26] MEDS: ACETAMINOPHEN 325 MG TAB PO (12:29)
[2018-07-26 13:16] LABS: CREATINE KINASE 78 IU/L (23-200)
[2018-07-26] MEDS: IODIXANOL LOCM 100 ML BTL (13:28)
[2018-07-26] MEDS: IODIXANOL LOCM 50 ML BTL (13:28)
[2018-07-26] MEDS: SOD CHLORIDE 0.9% 100 ML (13:28)
[2018-07-26 13:29] LABS: CK INDEX 1.5; CK-MB 1.18 ng/ml (0.0-2.4); TROPONIN-I 0.018 ng/ml (0.000-0.120)
[2018-07-26] MEDS: FERROUS SULFATE (EC) 325 MG TAB PO (14:27)
[2018-07-26] MEDS: ONDANSETRON 4 MG INJ IV (16:55)
[2018-07-26] MEDS: hydrALAzine 20 MG INJ IV ×2 (16:59→21:06)
[2018-07-26 17:07] LABS: CREATINE KINASE 69 IU/L (23-200)
[2018-07-26 17:22] LABS: CK INDEX 1.3; CK-MB 0.92 ng/ml (0.0-2.4)
[2018-07-26] MEDS: DOCUSATE SODIUM 100 MG CAP PO (17:53)
[2018-07-26 19:12] LABS: HEPATITIS B SURFACE ANTIGEN NEGATIVE (NEGATIVE)
[2018-07-26] MEDS: ISOSORBIDE DINITRATE 10 MG TAB PO (20:06)
[2018-07-26] MEDS: METOPROLOL 50 MG TAB PO (20:07)
[2018-07-26] MEDS: BENAZEPRIL 20 MG TAB PO (22:09)
[2018-07-27] MEDS: morphine 2 MG INJ IV ×2 (01:53→08:05)
[2018-07-27] MEDS: hydrALAzine 20 MG INJ IV (05:26)
[2018-07-27] MEDS: METOCLOPRAMIDE 5 MG TAB PO ×3 (05:28→17:48)
[2018-07-27] MEDS: PANTOPRAZOLE 40 MG INJ IV (05:28)
[2018-07-27] MEDS: ONDANSETRON 4 MG INJ IV (05:35)
[2018-07-27 06:12] LABS: ANION GAP 13 (5-13); BLOOD UREA NITROGEN 26 mg/dl (7-20); CALCIUM 10.1 mg/dl (8.4-10.2); CARBON DIOXIDE 30 mmol/L (21-31); CHLORIDE 97 mmol/L (97-110); CREATININE 6.02 mg/dl (0.61-1.24); Estimated GFR 10 mL/min (>60); GLUCOSE 90 mg/dl (70-220); MAGNESIUM 2.5 mg/dl (1.7-2.5); PHOSPHORUS 4.5 mg/dl (2.5-4.9); POTASSIUM 5.1 mmol/L (3.5-5.1); SODIUM 140 mmol/L (135-144)
[2018-07-27 07:41] LABS: HEMOGLOBIN A1C 4.7 % (0-5.9)
[2018-07-27] MEDS: SEVELAMER 800 MG TAB PO ×2 (07:46→12:00)
[2018-07-27] MEDS: METOPROLOL 50 MG TAB PO ×2 (07:56→21:12)
[2018-07-27] MEDS: ISOSORBIDE DINITRATE 10 MG TAB PO ×3 (07:56→21:12)
[2018-07-27] MEDS: BENAZEPRIL 20 MG TAB PO ×2 (08:04→21:12)
[2018-07-27] MEDS: CINACALCET 30 MG TAB PO (08:04)
[2018-07-27] MEDS: NIFEdipine (XL) 90 MG TAB PO (08:04)
[2018-07-27] MEDS: ACETAMINOPHEN 325 MG TAB PO ×2 (08:05→17:48)
[2018-07-27] MEDS: DEXTROSE 5%-0.45% NACL 1,000 ML IV (10:43)
[2018-07-27] MEDS: REGADENOSON 0.4 MG/5 ML SYG (10:55)
[2018-07-27] MEDS: SEVELAMER CARBONATE 800 MG TABLET PO (17:48)
[2018-07-27] MEDS ORDERED: NIFEdipine (XL) 90 MG TAB PO (21:00)
[2018-07-27] MEDS: NIFEdipine (XL) 60 MG TAB PO (21:12)
[2018-07-28 05:19] LABS: ADD MAN DIFF? NO
[2018-07-28 05:33] LABS: WHITE BLOOD COUNT 10.6 10^3/ul (4.8-10.8)
[2018-07-28 05:33] LABS: BASOPHIL # 0.1 10^3/ul (0.0-0.1); BASOPHILS % 0.7 % (0.0-2.0); EOSINOPHILS # 0.7 10^3/ul (0.0-0.5); EOSINOPHILS % 6.1 % (0.0-7.0); HEMATOCRIT 28.5 % (42.0-52.0); HEMOGLOBIN 9.1 g/dl (14.0-18.0); LYMPHOCYTES # 0.8 10^3/ul (0.8-2.9); LYMPHOCYTES % 7.8 % (15.0-51.0); MEAN CORPUSCULAR HEMOGLOBIN 29.8 pg (29.0-33.0); MEAN CORPUSCULAR HGB CONC 31.9 g/dl (32.0-37.0); MEAN CORPUSCULAR VOLUME 93.4 fl (82.0-101.0); MEAN PLATELET VOLUME 11.4 fl (7.4-10.4); MONOCYTE # 0.6 10^3/ul (0.3-0.9); MONOCYTES % 5.9 % (0.0-11.0); NEUTROPHIL # 8.4 10^3/ul (1.6-7.5); PLATELET COUNT 205 10^3/UL (140-415); RED BLOOD COUNT 3.05 10^6/ul (4.70-6.10); RED CELL DISTRIBUTION WIDTH 17.9 % (11.5-14.5)
[2018-07-28 06:09] LABS: MAGNESIUM 2.7 mg/dl (1.7-2.5)
[2018-07-28 06:09] LABS: PHOSPHORUS 6.1 mg/dl (2.5-4.9)
[2018-07-28] MEDS: PANTOPRAZOLE 40 MG INJ IV (06:15)
[2018-07-28 06:22] LABS: ANION GAP 13 (5-13); BLOOD UREA NITROGEN 46 mg/dl (7-20); CALCIUM 9.5 mg/dl (8.4-10.2); CARBON DIOXIDE 28 mmol/L (21-31); CHLORIDE 96 mmol/L (97-110); CREATININE 8.93 mg/dl (0.61-1.24); Estimated GFR 7 mL/min (>60); GLUCOSE 91 mg/dl (70-220); POTASSIUM 5.2 mmol/L (3.5-5.1); SODIUM 137 mmol/L (135-144)
[2018-07-28] MEDS: METOCLOPRAMIDE 5 MG TAB PO ×3 (06:27→17:25)
[2018-07-28] MEDS: SEVELAMER CARBONATE 800 MG TABLET PO ×3 (08:56→17:25)
[2018-07-28] MEDS: CINACALCET 30 MG TAB PO (08:56)
[2018-07-28] MEDS: ISOSORBIDE DINITRATE 10 MG TAB PO ×3 (08:57→21:49)
[2018-07-28] MEDS: METOPROLOL 50 MG TAB PO ×2 (13:52→21:48)
[2018-07-28] MEDS: NIFEdipine (XL) 60 MG TAB PO ×2 (13:52→21:49)
[2018-07-28] MEDS: BENAZEPRIL 20 MG TAB PO ×2 (13:53→21:48)
[2018-07-28] MEDS: hydrALAzine 20 MG INJ IV ×3 (13:57→23:56)
[2018-07-28] MEDS: ACETAMINOPHEN 325 MG TAB PO (15:37)
[2018-07-28] MEDS: morphine LIQ (10 MG/5 ML) CUP PO (17:31)
[2018-07-28] MEDS: ONDANSETRON 4 MG INJ IV (23:56)
[2018-07-29] MEDS: PANTOPRAZOLE (EC) 40 MG TAB PO ×3 (05:09→21:20)
[2018-07-29] MEDS: METOCLOPRAMIDE 5 MG TAB PO ×3 (06:54→17:00)
[2018-07-29] MEDS: BENAZEPRIL 20 MG TAB PO ×2 (08:15→21:20)
[2018-07-29] MEDS: NIFEdipine (XL) 60 MG TAB PO ×2 (08:16→21:21)
[2018-07-29] MEDS: METOPROLOL 50 MG TAB PO ×2 (08:16→21:21)
[2018-07-29] MEDS: ISOSORBIDE DINITRATE 10 MG TAB PO ×3 (08:17→21:20)
[2018-07-29] MEDS: CINACALCET 30 MG TAB PO (08:17)
[2018-07-29] MEDS: SEVELAMER CARBONATE 800 MG TABLET PO ×3 (08:18→17:33)
[2018-07-29] MEDS: ACETAMINOPHEN 325 MG TAB PO (09:43)
[2018-07-29] MEDS: ONDANSETRON 4 MG INJ IV (09:44)
[2018-07-29] MEDS: METOCLOPRAMIDE 10 MG INJ IV ×2 (13:47→21:18)
[2018-07-29] MEDS: SUCRALFATE 1 GM TAB PO ×2 (14:52→21:00)
[2018-07-29] MEDS ORDERED: PANTOPRAZOLE (EC) 40 MG TAB PO (21:00)
[2018-07-29] MEDS: DOXAZOSIN 2 MG TAB PO (21:22)
[2018-07-30] MEDS: DOCUSATE SODIUM 100 MG CAP PO (01:55)
[2018-07-30] MEDS: METOCLOPRAMIDE 5 MG TAB PO ×3 (07:07→17:11)
[2018-07-30] MEDS: ACETAMINOPHEN 325 MG TAB PO ×2 (07:12→16:23)
[2018-07-30] MEDS: hydrALAzine 20 MG INJ IV (07:35)
[2018-07-30] MEDS: SEVELAMER CARBONATE 800 MG TABLET PO ×3 (08:09→18:12)
[2018-07-30] MEDS: morphine LIQ (10 MG/5 ML) CUP PO ×2 (09:11→18:35)
[2018-07-30] MEDS: NIFEdipine (XL) 60 MG TAB PO ×2 (09:16→21:28)
[2018-07-30] MEDS: CINACALCET 30 MG TAB PO (09:16)
[2018-07-30] MEDS: SUCRALFATE 1 GM TAB PO ×3 (09:16→21:27)
[2018-07-30] MEDS: PANTOPRAZOLE (EC) 40 MG TAB PO ×2 (09:16→21:35)
[2018-07-30] MEDS: BENAZEPRIL 20 MG TAB PO ×2 (09:17→21:27)
[2018-07-30] MEDS: ISOSORBIDE DINITRATE 10 MG TAB PO ×3 (09:17→21:29)
[2018-07-30] MEDS: METOPROLOL 50 MG TAB PO ×2 (09:18→21:28)
[2018-07-30] MEDS: ONDANSETRON 4 MG INJ IV (10:42)
[2018-07-30] MEDS: LORAZEPAM 1 MG TAB PO (11:06)
[2018-07-30] MEDS: DOXAZOSIN 4 MG TAB PO (14:18)
[2018-07-30] MEDS: POLYETHYLENE GLYCOL 17 GM PACKET PO (17:11)
[2018-07-30] MEDS: DOXAZOSIN 2 MG TAB PO (21:30)
[2018-07-31 06:06] LABS: ANION GAP 13 (5-13); BLOOD UREA NITROGEN 61 mg/dl (7-20); CALCIUM 9.8 mg/dl (8.4-10.2); CARBON DIOXIDE 27 mmol/L (21-31); CHLORIDE 91 mmol/L (97-110); CREATININE 12.77 mg/dl (0.61-1.24); Estimated GFR 4 mL/min (>60); GLUCOSE 97 mg/dl (70-220); POTASSIUM 4.9 mmol/L (3.5-5.1); SODIUM 131 mmol/L (135-144)
[2018-07-31] MEDS: morphine LIQ (10 MG/5 ML) CUP PO (09:15)
[2018-07-31] MEDS: POLYETHYLENE GLYCOL 17 GM PACKET PO (09:15)
[2018-07-31] MEDS: PANTOPRAZOLE (EC) 40 MG TAB PO (09:15)
[2018-07-31] MEDS: SEVELAMER CARBONATE 800 MG TABLET PO ×2 (09:16→12:12)
[2018-07-31] MEDS: METOCLOPRAMIDE 5 MG TAB PO ×2 (09:16→12:12)
[2018-07-31] MEDS: CINACALCET 30 MG TAB PO (09:16)
[2018-07-31] MEDS: SUCRALFATE 1 GM TAB PO ×2 (09:17→12:12)
[2018-07-31] MEDS: BISACODYL (EC) 5 MG TAB PO (09:17)
[2018-07-31] MEDS: NIFEdipine (XL) 60 MG TAB PO (09:17)
[2018-07-31] MEDS: ISOSORBIDE DINITRATE 10 MG TAB PO ×2 (09:18→13:00)
[2018-07-31] MEDS: BENAZEPRIL 20 MG TAB PO (09:18)
[2018-07-31] MEDS: METOPROLOL 50 MG TAB PO (09:19)
== END 2018-07-31 14:16 | disposition home or self-care (01) | DRG 391 ==
LOC: E/R 06:07 → 6WM 07-27 11:46
PROC: 5A1D70Z Performance of Urinary Filtration, Intermittent, Less than 6 Hours Per Day (ICD-10-PCS; principal; 2018-07-28)
PROC: 5A1D70Z Performance of Urinary Filtration, Intermittent, Less than 6 Hours Per Day (ICD-10-PCS; 2018-07-31)
DX: K31.84 Gastroparesis (principal); N18.6 End stage renal disease; N25.81 Secondary hyperparathyroidism of renal origin; I42.9 Cardiomyopathy, unspecified; I12.0 Hypertensive chronic kidney disease with stage 5 chronic kidney disease or end stage renal disease; I16.0 Hypertensive urgency; E87.70 Fluid overload, unspecified; E78.5 Hyperlipidemia, unspecified; R07.89 Other chest pain; D63.8 Anemia in other chronic diseases classified elsewhere; Z91.15 Patient's noncompliance with renal dialysis; Z99.2 Dependence on renal dialysis; Z79.82 Long term (current) use of aspirin
CPT/HCPCS: 36415; 71045; 75635; 78452; 80048; 80053; 82550; 82553; 83036; 83690; 83735; 84100; 84484; 85025; 87340; 90935; 93005; 93017; 99285-25; G0378

== ENCOUNTER 2018-08-27 14:19 | Inpatient (IN) | payer MEDICAID ==
[2018-08-27 15:34] LABS: ADD MAN DIFF? NO
[2018-08-27 15:37] LABS: WHITE BLOOD COUNT 16.4 10^3/ul (4.8-10.8)
[2018-08-27 15:37] LABS: ABNORMAL IP MESSAGE 1; BASOPHILS % 0.2 % (0.0-2.0); EOSINOPHILS % 6.3 % (0.0-7.0); HEMATOCRIT 26.4 % (42.0-52.0); HEMOGLOBIN 8.3 g/dl (14.0-18.0); LYMPHOCYTES # 0.6 10^3/ul (0.8-2.9); LYMPHOCYTES % 3.5 % (15.0-51.0); MEAN CORPUSCULAR HEMOGLOBIN 30.1 pg (29.0-33.0); MEAN CORPUSCULAR HGB CONC 31.4 g/dl (32.0-37.0); MEAN CORPUSCULAR VOLUME 95.7 fl (82.0-101.0); MEAN PLATELET VOLUME 10.4 fl (7.4-10.4); MONOCYTE # 1.1 10^3/ul (0.3-0.9); MONOCYTES % 6.8 % (0.0-11.0); NEUTROPHIL # 13.6 10^3/ul (1.6-7.5); NEUTROPHILS % 82.8 % (39.0-77.0); PLATELET COUNT 219 10^3/UL (140-415); POSITIVE DIFF @See below; RED BLOOD COUNT 2.76 10^6/ul (4.70-6.10); RED CELL DISTRIBUTION WIDTH 17.4 % (11.5-14.5)
[2018-08-27] MEDS: PANTOPRAZOLE IV 80 MG in SOD CHLORIDE 0.9% 100 ML IVPB (15:47)
[2018-08-27 15:57] LABS: PARTIAL THROMBOPLASTIN TIME 27.9 Sec (23.0-35.0); PROTIME 14.3 Sec (11.9-14.9); PT RATIO 1.1
[2018-08-27 15:58] LABS: ALANINE AMINOTRANSFERASE 18 IU/L (13-69); ALBUMIN 4.3 g/dl (3.3-4.9); ALKALINE PHOSPHATASE 101 IU/L (42-121); ANION GAP 12 (5-13); ASPARTATE AMINO TRANSFERASE 18 IU/L (15-46); BILIRUBIN,INDIRECT 0.3 mg/dl (0-1.1); BILIRUBIN,TOTAL 0.3 mg/dl (0.2-1.3); BLOOD UREA NITROGEN 50 mg/dl (7-20); CALCIUM 11.2 mg/dl (8.4-10.2); CARBON DIOXIDE 30 mmol/L (21-31); CHLORIDE 98 mmol/L (97-110); CREATININE 9.18 mg/dl (0.61-1.24); Estimated GFR 6 mL/min (>60); GLUCOSE 98 mg/dl (70-220); POTASSIUM 4.5 mmol/L (3.5-5.1); SODIUM 140 mmol/L (135-144); TOTAL PROTEIN 7.6 g/dl (6.1-8.1)
[2018-08-27] MEDS: PANTOPRAZOLE IV 80 MG in SOD CHLORIDE 0.9% 100 ML IV (16:13)
[2018-08-27] MEDS ORDERED: ONDANSETRON 4 MG INJ IV (17:00)
[2018-08-27] MEDS: SOD CHLORIDE 0.9% 1,000 ML IV (17:03)
[2018-08-27] MEDS: ACETAMINOPHEN 325 MG TAB PO (17:05)
[2018-08-27] MEDS: NICARDipine HCL 30 MG CAPSULE PO (17:45)
[2018-08-27] MEDS: LORAZEPAM 1 MG TAB PO (22:13)
[2018-08-27] MEDS: DOXAZOSIN 4 MG TAB PO (22:13)
[2018-08-27] MEDS: SUCRALFATE 1 GM TAB PO (22:13)
[2018-08-27] MEDS: BENAZEPRIL 20 MG TAB PO (22:14)
[2018-08-27] MEDS: METOPROLOL 50 MG TAB PO (22:15)
[2018-08-27] MEDS: NIFEdipine (XL) 60 MG TAB PO (22:15)
[2018-08-27] MEDS: ISOSORBIDE DINITRATE 10 MG TAB PO (22:15)
[2018-08-27] MEDS: ONDANSETRON 4 MG INJ IV (22:53)
[2018-08-28] MEDS: hydrALAzine 20 MG INJ IV ×2 (03:02→11:47)
[2018-08-28] MEDS: PANTOPRAZOLE 40 MG INJ IV ×2 (05:34→21:18)
[2018-08-28] MEDS: HYDROmorphONE 0.5 MG/0.5 ML SYG IV (05:35)
[2018-08-28] MEDS ORDERED: PANTOPRAZOLE (EC) 40 MG TAB PO (06:00)
[2018-08-28 06:26] LABS: ADD MAN DIFF? NO
[2018-08-28 06:33] LABS: BASOPHILS % 0.3 % (0.0-2.0); EOSINOPHILS # 0.9 10^3/ul (0.0-0.5); EOSINOPHILS % 11.8 % (0.0-7.0); HEMATOCRIT 23.3 % (42.0-52.0); HEMOGLOBIN 7.3 g/dl (14.0-18.0); LYMPHOCYTES # 0.8 10^3/ul (0.8-2.9); LYMPHOCYTES % 10.6 % (15.0-51.0); MEAN CORPUSCULAR HEMOGLOBIN 30.2 pg (29.0-33.0); MEAN CORPUSCULAR HGB CONC 31.3 g/dl (32.0-37.0); MEAN CORPUSCULAR VOLUME 96.3 fl (82.0-101.0); MEAN PLATELET VOLUME 10.6 fl (7.4-10.4); MONOCYTE # 0.4 10^3/ul (0.3-0.9); MONOCYTES % 4.7 % (0.0-11.0); NEUTROPHIL # 5.4 10^3/ul (1.6-7.5); NEUTROPHILS % 72.3 % (39.0-77.0); PLATELET COUNT 157 10^3/UL (140-415); RED BLOOD COUNT 2.42 10^6/ul (4.70-6.10); RED CELL DISTRIBUTION WIDTH 17.1 % (11.5-14.5)
[2018-08-28 06:33] LABS: WHITE BLOOD COUNT 7.5 10^3/ul (4.8-10.8)
[2018-08-28 07:13] LABS: ALANINE AMINOTRANSFERASE 15 IU/L (13-69); ALBUMIN 3.6 g/dl (3.3-4.9); ALBUMIN/GLOBULIN RATIO 1.24; ALKALINE PHOSPHATASE 76 IU/L (42-121); ANION GAP 13 (5-13); ASPARTATE AMINO TRANSFERASE 14 IU/L (15-46); BILIRUBIN,INDIRECT 0.2 mg/dl (0-1.1); BILIRUBIN,TOTAL 0.2 mg/dl (0.2-1.3); BLOOD UREA NITROGEN 57 mg/dl (7-20); CALCIUM 10.3 mg/dl (8.4-10.2); CARBON DIOXIDE 28 mmol/L (21-31); CHLORIDE 98 mmol/L (97-110); CREATININE 10.03 mg/dl (0.61-1.24); Estimated GFR 6 mL/min (>60); GLUCOSE 92 mg/dl (70-220); POTASSIUM 4.7 mmol/L (3.5-5.1); SODIUM 139 mmol/L (135-144); TOTAL PROTEIN 6.5 g/dl (6.1-8.1)
[2018-08-28] MEDS: NIFEdipine (XL) 60 MG TAB PO ×2 (08:46→21:19)
[2018-08-28] MEDS: ISOSORBIDE DINITRATE 10 MG TAB PO ×3 (08:47→21:18)
[2018-08-28] MEDS: SUCRALFATE 1 GM TAB PO ×3 (08:47→21:20)
[2018-08-28] MEDS: METOCLOPRAMIDE 5 MG TAB PO ×3 (08:47→17:37)
[2018-08-28] MEDS: LORAZEPAM 1 MG TAB PO ×2 (08:48→21:18)
[2018-08-28] MEDS: METOPROLOL 50 MG TAB PO ×2 (08:48→21:20)
[2018-08-28] MEDS: BENAZEPRIL 20 MG TAB PO ×2 (08:49→21:19)
[2018-08-28 12:04] LABS: HEPATITIS B SURFACE ANTIGEN NEGATIVE (NEGATIVE)
[2018-08-28] MEDS: HYDROCODONE/APAP (5/325) TAB PO (13:11)
[2018-08-28] MEDS: EPOETIN ALFA-EPBX (ESRD) 4,000 UNIT/ML VIAL SC (17:37)
[2018-08-28] MEDS: DOXAZOSIN 4 MG TAB PO (21:20)
[2018-08-29 06:59] LABS: ADD MAN DIFF? NO
[2018-08-29 07:02] LABS: ABNORMAL IP MESSAGE 1; BASOPHILS % 0.5 % (0.0-2.0); EOSINOPHILS # 0.5 10^3/ul (0.0-0.5); HEMATOCRIT 23.9 % (42.0-52.0); HEMOGLOBIN 7.4 g/dl (14.0-18.0); LYMPHOCYTES # 0.6 10^3/ul (0.8-2.9); LYMPHOCYTES % 9.8 % (15.0-51.0); MEAN CORPUSCULAR HEMOGLOBIN 29.7 pg (29.0-33.0); MEAN PLATELET VOLUME 10.7 fl (7.4-10.4); MONOCYTE # 0.4 10^3/ul (0.3-0.9); MONOCYTES % 7.3 % (0.0-11.0); NEUTROPHIL # 4.4 10^3/ul (1.6-7.5); NEUTROPHILS % 73.1 % (39.0-77.0); PLATELET COUNT 153 10^3/UL (140-415); POSITIVE DIFF @See below; RED BLOOD COUNT 2.49 10^6/ul (4.70-6.10); RED CELL DISTRIBUTION WIDTH 16.4 % (11.5-14.5)
[2018-08-29 07:35] LABS: PHOSPHORUS 4.4 mg/dl (2.5-4.9)
[2018-08-29 07:35] LABS: MAGNESIUM 2.5 mg/dl (1.7-2.5)
[2018-08-29 07:40] LABS: ANION GAP 11 (5-13); BLOOD UREA NITROGEN 38 mg/dl (7-20); CALCIUM 9.8 mg/dl (8.4-10.2); CARBON DIOXIDE 30 mmol/L (21-31); CHLORIDE 98 mmol/L (97-110); CREATININE 7.53 mg/dl (0.61-1.24); Estimated GFR 8 mL/min (>60); GLUCOSE 86 mg/dl (70-220); POTASSIUM 4.6 mmol/L (3.5-5.1); SODIUM 139 mmol/L (135-144)
[2018-08-29] MEDS: HYDROCODONE/APAP (5/325) TAB PO ×2 (08:27→22:25)
[2018-08-29] MEDS: PANTOPRAZOLE 40 MG INJ IV ×2 (08:27→20:25)
[2018-08-29] MEDS: NIFEdipine (XL) 60 MG TAB PO ×2 (08:28→22:19)
[2018-08-29] MEDS: BENAZEPRIL 20 MG TAB PO ×2 (08:29→20:26)
[2018-08-29] MEDS: ISOSORBIDE DINITRATE 10 MG TAB PO ×3 (08:29→20:26)
[2018-08-29] MEDS: SUCRALFATE 1 GM TAB PO ×3 (08:29→20:26)
[2018-08-29] MEDS: METOPROLOL 50 MG TAB PO ×2 (08:29→22:20)
[2018-08-29] MEDS: METOCLOPRAMIDE 5 MG TAB PO ×3 (08:29→16:38)
[2018-08-29] MEDS: LORAZEPAM 1 MG TAB PO ×2 (09:00→20:29)
[2018-08-29] MEDS: DOXAZOSIN 4 MG TAB PO (22:20)
[2018-08-30] MEDS: SUCRALFATE 1 GM TAB PO ×3 (08:46→20:27)
[2018-08-30] MEDS: PANTOPRAZOLE 40 MG INJ IV ×2 (08:46→20:25)
[2018-08-30] MEDS: METOCLOPRAMIDE 5 MG TAB PO ×3 (08:47→17:20)
[2018-08-30 08:48] LABS: ADD MAN DIFF? NO
[2018-08-30] MEDS: LORAZEPAM 1 MG TAB PO ×2 (08:49→20:26)
[2018-08-30 08:51] LABS: WHITE BLOOD COUNT 5.1 10^3/ul (4.8-10.8)
[2018-08-30 08:51] LABS: BASOPHILS % 0.6 % (0.0-2.0); EOSINOPHILS # 0.4 10^3/ul (0.0-0.5); EOSINOPHILS % 8.6 % (0.0-7.0); HEMATOCRIT 23.4 % (42.0-52.0); HEMOGLOBIN 7.4 g/dl (14.0-18.0); LYMPHOCYTES # 0.6 10^3/ul (0.8-2.9); LYMPHOCYTES % 12.3 % (15.0-51.0); MEAN CORPUSCULAR HEMOGLOBIN 30.1 pg (29.0-33.0); MEAN CORPUSCULAR HGB CONC 31.6 g/dl (32.0-37.0); MEAN CORPUSCULAR VOLUME 95.1 fl (82.0-101.0); MEAN PLATELET VOLUME 10.9 fl (7.4-10.4); MONOCYTE # 0.4 10^3/ul (0.3-0.9); MONOCYTES % 7.2 % (0.0-11.0); NEUTROPHIL # 3.7 10^3/ul (1.6-7.5); NEUTROPHILS % 70.9 % (39.0-77.0); PLATELET COUNT 139 10^3/UL (140-415); RED BLOOD COUNT 2.46 10^6/ul (4.70-6.10); RED CELL DISTRIBUTION WIDTH 15.9 % (11.5-14.5)
[2018-08-30] MEDS: ISOSORBIDE DINITRATE 10 MG TAB PO ×3 (08:53→21:26)
[2018-08-30] MEDS: METOPROLOL 50 MG TAB PO ×2 (08:53→21:26)
[2018-08-30] MEDS: BENAZEPRIL 20 MG TAB PO ×2 (08:54→21:26)
[2018-08-30] MEDS: NIFEdipine (XL) 60 MG TAB PO ×2 (08:54→20:27)
[2018-08-30 09:12] LABS: ALANINE AMINOTRANSFERASE 19 IU/L (13-69); ALBUMIN 3.5 g/dl (3.3-4.9); ALKALINE PHOSPHATASE 72 IU/L (42-121); ANION GAP 12 (5-13); ASPARTATE AMINO TRANSFERASE 10 IU/L (15-46); BLOOD UREA NITROGEN 51 mg/dl (7-20); CALCIUM 9.8 mg/dl (8.4-10.2); CARBON DIOXIDE 27 mmol/L (21-31); CHLORIDE 97 mmol/L (97-110); CREATININE 10.81 mg/dl (0.61-1.24); Estimated GFR 5 mL/min (>60); GLUCOSE 90 mg/dl (70-220); SODIUM 136 mmol/L (135-144); TOTAL PROTEIN 6.4 g/dl (6.1-8.1)
[2018-08-30] MEDS: HYDROCODONE/APAP (5/325) TAB PO ×3 (10:48→20:27)
[2018-08-30] MEDS: PROPOFOL 20 ML (12:57)
[2018-08-30] MEDS: FENTAnyl 50 MCG/ML VIAL (12:58)
[2018-08-30] MEDS ORDERED: hydrALAzine 20 MG INJ IV (13:45)
[2018-08-30] MEDS: hydrALAzine 20 MG INJ IV ×2 (13:52→23:32)
[2018-08-30] MEDS: EPOETIN ALFA-EPBX (ESRD) 4,000 UNIT/ML VIAL SC (17:21)
[2018-08-30] MEDS: DIPHENHYDRAMINE 50 MG INJ IV (20:26)
[2018-08-30] MEDS: DOXAZOSIN 4 MG TAB PO (21:25)
[2018-08-31] MEDS: METOPROLOL 50 MG TAB PO (08:31)
[2018-08-31] MEDS: BENAZEPRIL 20 MG TAB PO (08:32)
[2018-08-31] MEDS: PANTOPRAZOLE 40 MG INJ IV (08:33)
[2018-08-31] MEDS: METOCLOPRAMIDE 5 MG TAB PO ×2 (08:33→11:50)
[2018-08-31] MEDS: NIFEdipine (XL) 60 MG TAB PO (08:33)
[2018-08-31] MEDS: SUCRALFATE 1 GM TAB PO ×2 (08:33→13:24)
[2018-08-31] MEDS: ISOSORBIDE DINITRATE 10 MG TAB PO ×2 (08:34→13:24)
[2018-08-31] MEDS: LORAZEPAM 1 MG TAB PO (08:47)
[2018-08-31] MEDS: DIPHENHYDRAMINE 50 MG INJ IV (08:47)
[2018-08-31 11:01] LABS: HEMATOCRIT 24.4 % (42.0-52.0); HEMOGLOBIN 7.8 g/dl (14.0-18.0)
== END 2018-08-31 18:46 | disposition home or self-care (01) | DRG 377 ==
LOC: E/R 14:19 → TEL 16:31
PROC: 0DB68ZX Excision of Stomach, Via Natural or Artificial Opening Endoscopic, Diagnostic (ICD-10-PCS; principal; 2018-08-30 11:57)
PROC: 5A1D70Z Performance of Urinary Filtration, Intermittent, Less than 6 Hours Per Day (ICD-10-PCS; 2018-08-30 11:57)
DX: K92.0 Hematemesis (principal); N18.6 End stage renal disease; N25.81 Secondary hyperparathyroidism of renal origin; I13.2 Hypertensive heart and chronic kidney disease with heart failure and with stage 5 chronic kidney disease, or end stage renal disease; K29.70 Gastritis, unspecified, without bleeding; K92.1 Melena; K29.80 Duodenitis without bleeding; R10.13 Epigastric pain; I50.9 Heart failure, unspecified; I16.0 Hypertensive urgency; D72.829 Elevated white blood cell count, unspecified; D63.8 Anemia in other chronic diseases classified elsewhere; Z99.2 Dependence on renal dialysis; E78.5 Hyperlipidemia, unspecified; E87.70 Fluid overload, unspecified; K44.9 Diaphragmatic hernia without obstruction or gangrene; K63.89 Other specified diseases of intestine; R51 Headache; Z79.82 Long term (current) use of aspirin; Z91.15 Patient's noncompliance with renal dialysis; Z91.14 Patient's other noncompliance with medication regimen
CPT/HCPCS: 71045; 80048; 80053; 83735; 84100; 85014; 85018; 85025; 85610; 85730; 86850; 86900; 86901; 87340; 88305; 88312; 90935; 93005; 96365; 96375; 99285-25

== ENCOUNTER 2018-09-17 11:41 | Inpatient (IN) | payer MEDICAID ==
[2018-09-17] MEDS: NITROGLYCERIN 2% 1 GM OINT PKT TD (12:55)
[2018-09-17] MEDS: ASPIRIN 81 MG TAB PO (12:55)
[2018-09-17] MEDS: ONDANSETRON 4 MG INJ IV (12:56)
[2018-09-17] MEDS: morphine 4 MG/ML VIAL IV ×2 (12:56→18:57)
[2018-09-17 13:09] LABS: ADD MAN DIFF? NO
[2018-09-17 13:12] LABS: BASOPHIL # 0.1 10^3/ul (0.0-0.1); BASOPHILS % 0.7 % (0.0-2.0); EOSINOPHILS # 0.6 10^3/ul (0.0-0.5); EOSINOPHILS % 6.1 % (0.0-7.0); HEMATOCRIT 31.5 % (42.0-52.0); HEMOGLOBIN 9.9 g/dl (14.0-18.0); LYMPHOCYTES # 0.7 10^3/ul (0.8-2.9); LYMPHOCYTES % 7.9 % (15.0-51.0); MEAN CORPUSCULAR HEMOGLOBIN 30.4 pg (29.0-33.0); MEAN CORPUSCULAR HGB CONC 31.4 g/dl (32.0-37.0); MEAN CORPUSCULAR VOLUME 96.6 fl (82.0-101.0); MEAN PLATELET VOLUME 11.3 fl (7.4-10.4); MONOCYTE # 0.5 10^3/ul (0.3-0.9); MONOCYTES % 5.2 % (0.0-11.0); NEUTROPHIL # 7.4 10^3/ul (1.6-7.5); NEUTROPHILS % 79.8 % (39.0-77.0); PLATELET COUNT 230 10^3/UL (140-415); RED BLOOD COUNT 3.26 10^6/ul (4.70-6.10); RED CELL DISTRIBUTION WIDTH 16.6 % (11.5-14.5)
[2018-09-17 13:12] LABS: WHITE BLOOD COUNT 9.2 10^3/ul (4.8-10.8)
[2018-09-17 13:30] LABS: INR 0.99; PROTIME 13.2 Sec (11.9-14.9)
[2018-09-17 13:31] LABS: PARTIAL THROMBOPLASTIN TIME 33.2 Sec (23.0-35.0)
[2018-09-17 13:57] LABS: ANION GAP 10 (5-13); BLOOD UREA NITROGEN 51 mg/dl (7-20); CALCIUM 10.9 mg/dl (8.4-10.2); CARBON DIOXIDE 30 mmol/L (21-31); CHLORIDE 99 mmol/L (97-110); CREATININE 9.85 mg/dl (0.61-1.24); Estimated GFR 6 mL/min (>60); GLUCOSE 94 mg/dl (70-220); SODIUM 139 mmol/L (135-144)
[2018-09-17 14:01] LABS: POTASSIUM 5.2 mmol/L (3.5-5.1)
[2018-09-17 14:07] LABS: TROPONIN-I 0.031 ng/ml (0.000-0.120)
[2018-09-17] MEDS ORDERED: ACETAMINOPHEN 325 MG TAB PO ×2 (14:30→20:00)
[2018-09-17] MEDS ORDERED: ZOLPIDEM 5 MG TAB PO (20:00)
[2018-09-17] MEDS ORDERED: NACL 0.9% 3 ML SYG IV (20:00)
[2018-09-17] MEDS ORDERED: DOCUSATE SODIUM 100 MG CAP PO (20:00)
[2018-09-17] MEDS ORDERED: ONDANSETRON 4 MG INJ IV (20:00)
[2018-09-17 20:13] LABS: CREATINE KINASE 45 IU/L (23-200)
[2018-09-17 20:24] LABS: CK-MB 0.91 ng/ml (0.0-2.4); TROPONIN-I 0.027 ng/ml (0.000-0.120)
[2018-09-17] MEDS ORDERED: BENAZEPRIL 20 MG TAB PO (21:00)
[2018-09-17] MEDS ORDERED: FERROUS GLUCONATE 236 MG PO (21:00)
[2018-09-17] MEDS: NIFEdipine (XL) 60 MG TAB PO (21:05)
[2018-09-17] MEDS: ISOSORBIDE DINITRATE 10 MG TAB PO (21:05)
[2018-09-17] MEDS: SUCRALFATE 1 GM TAB PO (21:06)
[2018-09-17] MEDS: FERROUS GLUCONATE (EC) 325 MG TAB PO (21:06)
[2018-09-17] MEDS: DOXAZOSIN 2 MG TAB PO (21:06)
[2018-09-17] MEDS: METOPROLOL 50 MG TAB PO (21:07)
[2018-09-17] MEDS: morphine 2 MG INJ IV (23:39)
[2018-09-18 01:31] LABS: CREATINE KINASE 41 IU/L (23-200)
[2018-09-18 01:43] LABS: CK INDEX 2.3; CK-MB 0.93 ng/ml (0.0-2.4); TROPONIN-I 0.025 ng/ml (0.000-0.120)
[2018-09-18] MEDS: ONDANSETRON 4 MG INJ IV ×2 (02:15→13:27)
[2018-09-18] MEDS ORDERED: PANTOPRAZOLE (EC) 40 MG TAB PO (06:00)
[2018-09-18 06:12] LABS: ADD MAN DIFF? NO
[2018-09-18 06:21] LABS: BASOPHIL # 0.1 10^3/ul (0.0-0.1); BASOPHILS % 0.5 % (0.0-2.0); EOSINOPHILS # 0.4 10^3/ul (0.0-0.5); EOSINOPHILS % 3.3 % (0.0-7.0); HEMATOCRIT 30.8 % (42.0-52.0); HEMOGLOBIN 9.4 g/dl (14.0-18.0); LYMPHOCYTES # 0.7 10^3/ul (0.8-2.9); LYMPHOCYTES % 5.9 % (15.0-51.0); MEAN CORPUSCULAR HEMOGLOBIN 30.2 pg (29.0-33.0); MEAN CORPUSCULAR HGB CONC 30.5 g/dl (32.0-37.0); MEAN PLATELET VOLUME 10.7 fl (7.4-10.4); MONOCYTE # 0.5 10^3/ul (0.3-0.9); NEUTROPHIL # 10.3 10^3/ul (1.6-7.5); PLATELET COUNT 167 10^3/UL (140-415); RED BLOOD COUNT 3.11 10^6/ul (4.70-6.10)
[2018-09-18] MEDS: PANTOPRAZOLE (EC) 40 MG TAB PO ×3 (06:22→20:18)
[2018-09-18 06:52] LABS: ANION GAP 12 (5-13); BLOOD UREA NITROGEN 60 mg/dl (7-20); CALCIUM 9.9 mg/dl (8.4-10.2); CARBON DIOXIDE 27 mmol/L (21-31); CHLORIDE 99 mmol/L (97-110); CREATININE 11.52 mg/dl (0.61-1.24); Estimated GFR 5 mL/min (>60); GLUCOSE 89 mg/dl (70-220); MAGNESIUM 3.1 mg/dl (1.7-2.5); PHOSPHORUS 5.6 mg/dl (2.5-4.9); SODIUM 138 mmol/L (135-144)
[2018-09-18 07:02] LABS: POTASSIUM 6.8 mmol/L (3.5-5.1)
[2018-09-18] MEDS: SEVELAMER CARBONATE 800 MG TABLET PO ×3 (08:08→18:24)
[2018-09-18] MEDS: METOCLOPRAMIDE 10 MG TAB PO ×3 (08:08→18:24)
[2018-09-18] MEDS: FERROUS GLUCONATE (EC) 325 MG TAB PO ×2 (08:36→20:19)
[2018-09-18] MEDS: CINACALCET 30 MG TAB PO (08:36)
[2018-09-18] MEDS: ASPIRIN (EC) 81 MG TAB PO (08:36)
[2018-09-18] MEDS: SUCRALFATE 1 GM TAB PO ×3 (08:36→20:19)
[2018-09-18] MEDS: METOPROLOL 50 MG TAB PO ×2 (08:37→20:19)
[2018-09-18] MEDS: NIFEdipine (XL) 60 MG TAB PO ×2 (08:38→20:18)
[2018-09-18] MEDS: BENAZEPRIL 40 MG TAB PO (08:39)
[2018-09-18] MEDS: ISOSORBIDE DINITRATE 10 MG TAB PO ×3 (08:39→20:18)
[2018-09-18] MEDS: morphine 2 MG INJ IV ×2 (08:40→21:17)
[2018-09-18] MEDS ORDERED: DEXTROSE 50% 50 ML SYRINGE IV (10:30)
[2018-09-18] MEDS ORDERED: CA CHLORIDE 10% 10 ML SYRINGE IV (10:30)
[2018-09-18] MEDS: INSULIN REGULAR, HUMAN 100 UNIT/1 ML 3ML VIAL IVP (11:21)
[2018-09-18] MEDS: CALCIUM CHLORIDE 10% 1 GM in DEXTROSE 5% 100 ML IV (11:34)
[2018-09-18] MEDS ORDERED: SENNA TAB PO (14:30)
[2018-09-18] MEDS ORDERED: DOCUSATE SODIUM 100 MG CAP PO (14:30)
[2018-09-18] MEDS: [UNRECOGNIZED DRUG - REMARK] XX (19:30)
[2018-09-18] MEDS: DOXAZOSIN 2 MG TAB PO (20:18)
[2018-09-18] MEDS ORDERED: NIFEdipine (XL) 30 MG TAB PO (21:00)
[2018-09-18] MEDS: EPOETIN ALFA-EPBX (ESRD) 4,000 UNIT/ML VIAL SC (21:11)
[2018-09-19 06:54] LABS: ANION GAP 11 (5-13); BLOOD UREA NITROGEN 40 mg/dl (7-20); CALCIUM 9.2 mg/dl (8.4-10.2); CARBON DIOXIDE 26 mmol/L (21-31); CHLORIDE 100 mmol/L (97-110); CREATININE 8.12 mg/dl (0.61-1.24); Estimated GFR 7 mL/min (>60); GLUCOSE 91 mg/dl (70-220); POTASSIUM 5.2 mmol/L (3.5-5.1); SODIUM 137 mmol/L (135-144)
[2018-09-19 07:00] LABS: CHOLESTEROL 111 mg/dl (100-200)
[2018-09-19 07:00] LABS: CHOL/HDL RATIO 2.6 RATIO; HDL CHOLESTEROL 42 mg/dl (27-67); LDL CHOLESTEROL,CALCULATED 54 mg/dl; TRIGLYCERIDES 77 mg/dl (0-149)
[2018-09-19 07:51] LABS: HEMOGLOBIN A1C 4.6 % (0-5.9)
[2018-09-19] MEDS: CINACALCET 30 MG TAB PO (08:27)
[2018-09-19] MEDS: SEVELAMER CARBONATE 800 MG TABLET PO ×3 (08:27→17:16)
[2018-09-19] MEDS: ASPIRIN (EC) 81 MG TAB PO (08:27)
[2018-09-19] MEDS: PANTOPRAZOLE (EC) 40 MG TAB PO ×2 (08:27→22:01)
[2018-09-19] MEDS: SUCRALFATE 1 GM TAB PO ×3 (08:27→21:58)
[2018-09-19] MEDS: FERROUS GLUCONATE (EC) 325 MG TAB PO ×2 (08:28→22:00)
[2018-09-19] MEDS: METOCLOPRAMIDE 10 MG TAB PO ×3 (08:28→17:16)
[2018-09-19] MEDS: morphine 2 MG INJ IV ×2 (08:34→17:16)
[2018-09-19] MEDS: METOPROLOL 50 MG TAB PO ×2 (09:00→22:03)
[2018-09-19] MEDS: NIFEdipine (XL) 60 MG TAB PO ×2 (09:00→22:01)
[2018-09-19] MEDS: ISOSORBIDE DINITRATE 10 MG TAB PO ×3 (09:00→22:01)
[2018-09-19] MEDS: [UNRECOGNIZED DRUG - REMARK] XX (15:00)
[2018-09-19] MEDS: EPOETIN ALFA-EPBX (ESRD) 4,000 UNIT/ML VIAL SC (16:33)
[2018-09-19] MEDS: DOXAZOSIN 2 MG TAB PO (21:59)
[2018-09-20 07:48] LABS: ADD MAN DIFF? NO
[2018-09-20 07:51] LABS: WHITE BLOOD COUNT 6.4 10^3/ul (4.8-10.8)
[2018-09-20 07:51] LABS: ABNORMAL IP MESSAGE 1; BASOPHILS % 0.5 % (0.0-2.0); EOSINOPHILS # 0.3 10^3/ul (0.0-0.5); EOSINOPHILS % 4.8 % (0.0-7.0); HEMATOCRIT 29.1 % (42.0-52.0); HEMOGLOBIN 9.4 g/dl (14.0-18.0); LYMPHOCYTES # 0.5 10^3/ul (0.8-2.9); LYMPHOCYTES % 7.2 % (15.0-51.0); MEAN CORPUSCULAR HEMOGLOBIN 30.7 pg (29.0-33.0); MEAN CORPUSCULAR HGB CONC 32.3 g/dl (32.0-37.0); MEAN CORPUSCULAR VOLUME 95.1 fl (82.0-101.0); MEAN PLATELET VOLUME 11.2 fl (7.4-10.4); MONOCYTE # 0.5 10^3/ul (0.3-0.9); MONOCYTES % 8.3 % (0.0-11.0); NEUTROPHIL # 5.1 10^3/ul (1.6-7.5); NEUTROPHILS % 78.9 % (39.0-77.0); PLATELET COUNT 150 10^3/UL (140-415); POSITIVE DIFF @See below; RED BLOOD COUNT 3.06 10^6/ul (4.70-6.10); RED CELL DISTRIBUTION WIDTH 15.3 % (11.5-14.5)
[2018-09-20 08:24] LABS: ANION GAP 9 (5-13); BLOOD UREA NITROGEN 32 mg/dl (7-20); CALCIUM 9.4 mg/dl (8.4-10.2); CARBON DIOXIDE 30 mmol/L (21-31); CHLORIDE 96 mmol/L (97-110); CREATININE 7.12 mg/dl (0.61-1.24); Estimated GFR 9 mL/min (>60); GLUCOSE 102 mg/dl (70-220); POTASSIUM 4.4 mmol/L (3.5-5.1); SODIUM 135 mmol/L (135-144)
[2018-09-20] MEDS: HYDROCODONE/APAP (5/325) TAB PO (08:45)
[2018-09-20] MEDS: SEVELAMER CARBONATE 800 MG TABLET PO ×2 (08:46→13:15)
[2018-09-20] MEDS: METOCLOPRAMIDE 10 MG TAB PO ×2 (08:46→11:20)
[2018-09-20] MEDS: PANTOPRAZOLE (EC) 40 MG TAB PO (08:47)
[2018-09-20] MEDS: CINACALCET 30 MG TAB PO (08:47)
[2018-09-20] MEDS: ISOSORBIDE DINITRATE 10 MG TAB PO ×2 (08:47→13:15)
[2018-09-20] MEDS: FERROUS GLUCONATE (EC) 325 MG TAB PO (08:47)
[2018-09-20] MEDS: SUCRALFATE 1 GM TAB PO ×2 (08:47→13:16)
[2018-09-20] MEDS: NIFEdipine (XL) 60 MG TAB PO (08:47)
[2018-09-20] MEDS: ASPIRIN (EC) 81 MG TAB PO (08:48)
[2018-09-20] MEDS: METOPROLOL 50 MG TAB PO (08:48)
== END 2018-09-20 13:40 | disposition home or self-care (01) | DRG 391 ==
LOC: E/R 11:41 → TEL 17:47
PROC: 5A1D70Z Performance of Urinary Filtration, Intermittent, Less than 6 Hours Per Day (ICD-10-PCS; principal; 2018-09-18)
DX: R10.13 Epigastric pain (principal); N18.6 End stage renal disease; I13.0 Hypertensive heart and chronic kidney disease with heart failure and stage 1 through stage 4 chronic kidney disease, or unspecified chronic kidney disease; N25.81 Secondary hyperparathyroidism of renal origin; R65.10 Systemic inflammatory response syndrome (SIRS) of non-infectious origin without acute organ dysfunction; J81.1 Chronic pulmonary edema; I50.9 Heart failure, unspecified; E87.5 Hyperkalemia; E83.39 Other disorders of phosphorus metabolism; E83.41 Hypermagnesemia; Z99.2 Dependence on renal dialysis; D63.1 Anemia in chronic kidney disease; K59.00 Constipation, unspecified; K44.9 Diaphragmatic hernia without obstruction or gangrene
CPT/HCPCS: 36415; 71045; 80048; 80061; 82550; 82553; 82962; 83036; 83735; 84100; 84484; 85025; 85610; 85730; 87081; 90935; 93005; 96374; 96375; 99285-25